=== PATIENT | female | born 1935 | race Caucasian/White ===

== ENCOUNTER 2020-04-13 05:41 | Day surgery (SDC) | payer MEDICARE, SELFPAY ==
[2020-03-23 12:42] VITALS: BMI 21.2
[2020-04-13] VITALS (8 sets, daily range): BP systolic 89–137; BP diastolic 40–78; PULSE 75–103; RESP 14–18; TEMP 36.1–36.6; O2SAT 96–100; BMI 21.2
--- NOTE | 2020-04-13 06:17 | HP.PCM_ITS ---
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 Fermin Conrad MD) Smoking Status: Never smoker alcohol intake: never HPI HPI HPI: BIPIN SAXENA, is a 84 F who presents to the office today for surgical follow-up regarding surveillance colonoscopy because of a personal history of colon cancer. She currently denies any bright red blood per rectum or melena. No abdominal pain. As noted below December 2015 she had a combined laparoscopic right colectomy and cholecystectomy. 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 No lymph node involvement. She had a follow-up colonoscopy 1 year subsequently 2016. Her weight has been stable. No abdominal pain. No acute change of bowel habit. Report of Operation Date of Procedure: 03/09/17 Pre-Operative Diagnosis: Personal history of colon cancer Post-Operative Diagnosis: Patent ileocolonic anastomosis. Diminutive polyp of the descending colon. Scattered sigmoid diverticulosis. Internal hemorrhoids Surgery/Procedure Performed:: Colonoscopy with cold forceps polypectomy, adenomatous tissue January 19, 2016 MICROSCOPIC DIAGNOSIS A. Gallbladder, cholecystectomy:Chronic cholecystitis and cholelithiasis. B. Right colon, hemicolectomy:Invasive adenocarcinoma.See comment for complete cancer checklist.AM:kaushik 01/21/16COMMENTCOLOVlad CANCER SUMMARY:Specimen ?right colonProcedure ?right hemicolectomyTumor site ?right colonTumor size ?2.5 x 2 x 0.6 cm Tumor grade ?grade 2 (moderately differentiated)Macroscopic tumor perforation ?not identifiedHistologic type ?adenocarcinomaMicroscopic tumor extension ?tumor invades muscularis propriaHistologic features suggestive of Microsatellite Instability:Intratumoral lymphocytic response -mildPeritumoral lymphocytic response (Crohn-like) ?not presentTumor subtype and differentiation ?not applicable Margins: Tumor is located 10.5 cm from its closest (distal) margin of excisionProximal margin ?uninvolved by carcinomaDistal margin -uninvolved by carcinomaCircumferential or mesenteric margin -uninvolved by carcinomaLymph- Vascular invasion ?not identifiedPerineural invasion ?not identifiedTumor deposits ?not identifiedType of tumor in association with carcinoma ?tubular adenomaLymph nodes: Number of lymph nodes examined ?29 Number of lymph nodes involved -0 Ancillary studies:See microsatellite instability study by IHC ([id number]) for complete details.Negative (no loss of mismatch protein; no microsatellite instability detected). PATHOLOGIC STAGE: pT2 N0 M HPI HPI HPI: BIPIN SAXENA, is a 84 F who presents to the office today for ROS General General: Yes colon cancer; no weight change, appetite, fatigue, breast cancer or weakness HEENT HEENT: Yes eye injury and eye surgery; no difficulty swallowing, swollen glands or hoarseness Endo Endocrine: No thyroid disease, diabetes mellitus, thyroid cancer, Hair loss, heat intolerance or cold intolerance Skin Skin: No rash or changing moles Breast Breast: No left breast lump, right breast lump, nipple discharge, breast pain, abnormal mammogram, abnormal US or breast enlargement Musc Musculoskeletal: No back problems, arthritis, rheumatoid arthritis, gout or joint pain Cardio Cardiovascular: Yes high blood pressure; no murmur, pacemaker, heart disease, atrial fibrillation, heart attack, heart stent, palpitations, shortness of breat with exertion or chest pain Psych Psychiatric: No depression, anxiety or hearing voices Resp Respiratory: No shortness of breath, No sleep apnea, No cough, No COPD, No asthma, No emphysema, No wheezing Gastro Gastrointestinal: No abdominal pain, No nausea or vomiting, No diarrhea, No constipation, No blood in stool, No acid reflux, No hemorrhoids, No ulcers, No gallbladder problem, No black,tarry stools Jose Hematologic: No blood thinners, No blood disorders, No bleeding, No anemia, No blood clots Neuro Neurologic: No system reviewed and no additional complaints, except as docu, No as per HPI, No abnormal walking, No abnormal hearing, No abnormal movements, No abnormal speech, No behavioral changes, No burning sensations, No confusion, No seizure-like activity, No unsteadiness, No dizziness, No localized weakness, No frequent falls, No headache(s), No lack of coordination, No loss of vision, No memory loss, No numbness, No other visual disturbances, No radiating pain, No restless legs, No sensory deficit, No fainting, No tingling, No tremor(s), No weakness, No other Exam Const General: cooperative, healthy appearing, comfortable, no acute distress Nutritional Appearance: average body habitus Orientation: alert, awake [facility] Head: normal to inspection Eyes General: appearance normal, both eyes and all related structures Chest Breast Palpation: No nipple discharge Resp Effort & Inspection: normal respiratory effort Auscultation: clear to auscultation bilaterally Cardio Rate: regular rate Rhythm: regular rhythm Heart Sounds: no murmurs GI Other: Soft, nontender, well-healed supraumbilical vertical incision without defect, bowel sounds present and normal, Musc Cervical Spine: normal cervical lordosis Neuro Cognition: normal cognition Extrem General: no calf tenderness Psych Affect: normal affect Assessment & Plan Problems 1. Malignant neoplasm of ascending colon C18.2 Plan 84-year-old female with personal history of colon cancer in 2016. Her most recent colonoscopy was February 2017. She did have adenomatous tissue of her descending colon at that time. I am recommending a colonoscopy with possible biopsy or polypectomy as indicated. She did well IV sedation at that time. She is aware of the technique, benefit, risk, alternatives. We will schedule procedure at her discretion. I appreciate the ongoing opportunity of assisting with her surgical care. Copy: Dr. Vahe Conrad M.D., F.A.C.S. Orders Orders: Colonoscopy Today Coding Level of Care Code Off vis,est,level 2 Diagnoses Malignant neoplasm of ascending colon C18.2 ??Colon location: ascending I have re-examined the patient. There are no clinical changes since date of exam.
--- NOTE | 2020-04-13 07:15 | OP.CCLET_ITS ---
04/13/2020 Vahe Plunkett MD Re : Colonoscopy procedure for Isatu Botello Dear Dr. Plunkett This procedure was performed on Monday, April 13, 2020. My impressions and recommendations are as follows: Impressions : - Hemorrhoids found on perianal exam. - Diverticulosis in the sigmoid colon and in the descending colon. - Patent functional end-to-end ileo-colonic anastomosis, characterized by healthy appearing mucosa. - The examination was otherwise normal. - No specimens collected. Recommendations : - Discharge patient to home. - Resume previous diet. - Continue present medications. - Repeat colonoscopy in 3 years for screening purposes. My findings are described in the full procedure note, which is enclosed. If I can be of further assistance, please feel free to contact me at Doctor phone number(s): Work: . Sincerely, Fermin Conrad MD 04/13/2020 7:15:24 AM This report has been signed electronically.
--- NOTE | 2020-04-13 07:15 | OP.COLON_ITS ---
Patient Name: Isatu Botello Procedure Date: 04/13/2020 6:53 AM Date of : 1935 Age: 84 Procedure: Colonoscopy Indications: High risk colon cancer surveillance: Personal history of colon cancer Providers: Fermin Conrad MD Referring MD: Vahe Plunkett MD Medicines: Midazolam 2.5 mg IV, Meperidine 75 mg IV Patient Profile: Last Colonoscopy: 2016. Complications: No immediate complications. Procedure: Pre-Anesthesia Assessment: - Prior to the procedure, a History and Physical was performed, and patient medications and allergies were reviewed. The patient's tolerance of previous anesthesia was also reviewed. The risks and benefits of the procedure and the sedation options and risks were discussed with the patient. All questions were answered, and informed consent was obtained. Prior Anticoagulants: The patient has taken no previous anticoagulant or antiplatelet agents. ASA Grade Assessment: II - A patient with mild systemic disease. After reviewing the risks and benefits, the patient was deemed in satisfactory condition to undergo the procedure. After I obtained informed consent, the scope was passed under direct vision. Throughout the procedure, the patient's blood pressure, pulse, and oxygen saturations were monitored continuously. The colonoscope was introduced through the anus and advanced to the ileocolonic anastomosis. The colonoscopy was performed without difficulty. The patient tolerated the procedure well. The quality of the bowel preparation was good. Ileocolonic anastomosis were photographed. Moderate Sedation: Moderate (conscious) sedation was personally administered by the endoscopist. The following parameters were monitored: oxygen saturation, heart rate, blood pressure, and response to care. Total physician intraservice time was 15 minutes. Scope In: 7:02:13 AM Scope Withdrawal Time 0 hours 6 minutes 20 seconds Scope Out: 7:10:29 AM Total Procedure Duration Time 0 hours 8 minutes 16 seconds Findings: Hemorrhoids were found on perianal exam. Scattered diverticula were found in the sigmoid colon and descending colon. There was evidence of a prior functional end-to-end ileo-colonic anastomosis in the proximal transverse colon. This was patent and was characterized by healthy appearing mucosa. The exam was otherwise without abnormality. Impression: - Hemorrhoids found on perianal exam. - Diverticulosis in the sigmoid colon and in the descending colon. - Patent functional end-to-end ileo-colonic anastomosis, characterized by healthy appearing mucosa. - The examination was otherwise normal. - No specimens collected. Recommendation: - Discharge patient to home. - Resume previous diet. - Continue present medications. - Repeat colonoscopy in 3 years for screening purposes. Procedure Code(s): --- Professional --- 17225, Colonoscopy, flexible; diagnostic, including collection of specimen(s) by brushing or washing, when performed (separate procedure) 99694, 59, Moderate sedation services provided by the same physician or other qualified health rn intensive care unit performing the diagnostic or therapeutic service that the sedation supports, requiring the presence of an independent trained observer to assist in the monitoring of the patient's level of consciousness and physiological status; initial 15 minutes of intraservice time, patient age 5 years or older Diagnosis Code(s): --- Professional --- Z85.038, Personal history of other malignant neoplasm of large intestine K64.9, Unspecified hemorrhoids Z98.0, Intestinal bypass and anastomosis status K57.30, Diverticulosis of large intestine without perforation or abscess without bleeding CPT copyright 2017 [employer]. All rights reserved. The codes documented in this report are preliminary and upon nuclear pharmacist review may be revised to meet current compliance requirements. Fermin Conrad MD 04/13/2020 7:15:24 AM This report has been signed electronically. Number of Addenda: 0 Note Initiated On: 04/13/2020 6:53 AM
== END 2020-04-13 08:28 | disposition home or self-care (01) ==
LOC: EN 05:41 → AC 05:42
PROVIDERS: PCP Family Medicine; Referring Provider Family Medicine; Visit Provider Surgery
PROC: 0DJD8ZZ Inspection of Lower Intestinal Tract, Via Natural or Artificial Opening Endoscopic (ICD-10-PCS; CPT 45378; principal; 2020-04-13 06:55)
DX: Z12.11 Encounter for screening for malignant neoplasm of colon (principal); Z85.038 Personal history of other malignant neoplasm of large intestine; Z20.828 Contact with and (suspected) exposure to other viral communicable diseases; I10 Essential (primary) hypertension; Z90.49 Acquired absence of other specified parts of digestive tract; K64.9 Unspecified hemorrhoids; K57.30 Diverticulosis of large intestine without perforation or abscess without bleeding; Z98.0 Intestinal bypass and anastomosis status
CPT/HCPCS: G0105; 87426; 99152; 99153; C9803; J7120

== ENCOUNTER 2023-05-24 06:44 | Day surgery (SDC) | payer MEDICARE, SELFPAY ==
[2023-05-24] VITALS (10 sets, daily range): BP systolic 121–161; BP diastolic 72–96; PULSE 78–99; RESP 16; TEMP 36.3–36.7; O2SAT 96–100; BMI 20.2
--- NOTE | 2023-05-24 06:47 | HP.PCM_ITS ---
History and Physical Date of Admission: 05/24/23 Visit Reasons: 3 YEAR COLONOSCOPY Chief Complaint: 3 year colonoscopy Is patient in pain?: No Allergies Sulfa (Sulfonamide Antibiotics) Allergy (Verified 04/03/23 14:42) Unknown Medications amlodipine 5 mg tablet (Norvasc) 5 mg PO DAILY 03/23/20 [History Confirmed 04/03/23] cetirizine 10 mg capsule (Zyrtec) mg PO 03/23/20 [History Confirmed 04/03/23] cholecalciferol (vitamin D3) 25 mcg (1,000 unit) capsule 25 mcg PO DAILY 03/23/20 [History Confirmed 04/03/23] clonidine HCl 0.1 mg tablet 0.1 mg PO QHS 03/23/20 [History Confirmed 04/03/23] PFSH Medical History Aspiration pneumonia HTN (hypertension) Sepsis Surgical History S/P colectomy Family History Sister Colon cancer Hypertension Diabetes Social History Smoking Status: Never smoker alcohol intake: never HPI HPI HPI: 87-year-old female who I assisted previously April 13, 2020 with a colonoscopy because she has had a personal history of colon cancer. Hemorrhoids were identified and diverticula of the sigmoid and descending colon. There was evidence of a prior functional end-to-end ileocolonic anastomosis in the proximal transverse colon that appeared healthy. No acute findings identified. December 2015 she had a combined laparoscopic right colectomy and cholecystectomy for stage II ascending colon cancer. She continues to enjoy a very high quality of life. No abdominal pain. No bright red blood per rectum or melena. Her is still alive as well. She remains active both inside and outside of the house. ROS General General: Yes colon cancer; No weight change, appetite, fatigue, breast cancer or weakness HEENT HEENT: Yes eye surgery; No difficulty swallowing, eye injury, swollen glands or hoarseness Endo Endocrine: No thyroid disease, diabetes mellitus, thyroid cancer, Hair loss, heat intolerance or cold intolerance Skin Skin: No rash or changing moles Musc Musculoskeletal: No back problems, arthritis, rheumatoid arthritis, gout or joint pain Cardio Cardiovascular: Yes high blood pressure; No murmur, pacemaker, heart disease, atrial fibrillation, heart attack, heart stent, palpitations, shortness of breat with exertion or chest pain Psych Psychiatric: Yes anxiety; No depression or hearing voices Resp Respiratory: No shortness of breath, No sleep apnea, No cough, No COPD, No asthma, No emphysema and No wheezing Gastro Gastrointestinal: No abdominal pain, No nausea or vomiting, No diarrhea, No constipation, No blood in stool, No acid reflux, No hemorrhoids, No ulcers, No gallbladder problem and No black,tarry stools Jose Hematologic: No blood thinners, No blood disorders, No bleeding, No anemia and No blood clots Neuro Neurologic: No system reviewed and no additional complaints, except as docume nted, No as per HPI, No abnormal gait, No abnormal hearing, No abnormal movements, No abnormal speech, No behavioral changes, No burning sensations, No confusion, No convulsions, No disequilibrium, No dizziness, No localized weakness, No frequent falls, No headache(s), No lack of coordination, No loss of vision, No memory loss, No numbness, No other visual disturbances, No radicular pain, No restless legs, No sensory deficit, No syncope, No tingling, No tremor(s), No weakness and No other Exam Const General: cooperative, comfortable and no acute distress Nutritional Appearance: average body habitus Orientation: alert and awake [facility] Head: normal to inspection Eyes General: appearance normal, both eyes and all related structures Neck Neck: normal visual inspection Resp Effort & Inspection: normal respiratory effort Auscultation: clear to auscultation bilaterally Cardio Rate: regular rate Rhythm: regular rhythm GI Inspection: normal to inspection Palpation: soft and no hepatosplenomegaly Other: Well-healed vertical supraumbilical ventral incision Musc Cervical Spine: normal cervical lordosis Skin General: no rashes or lesions noted Neuro General: patient alert, patient awake and patient oriented x3 Extrem General: no calf tenderness Psych Appearance: grossly normal Assessment and Plan Assessment and Plan (1) History of colon cancer: Status: Acute Plan: Copy: Dr. Vaeh Conrad M.D., F.A.C.S The patient has had no change in health or presentation or physical exam since her previous office visit. We will plan to proceed with a colonoscopy with possible biopsy or polypectomy as indicated. She is aware of the technique, benefit, risk, alternatives. She has had an opportunity to ask and have questions answered. We will proceed as noted. Fermin Conrad M.D., F.A.C.S.
--- OUTSIDE RECORDS SUMMARY | 2023-05-24 06:47 | XMS RPT_ITS | CCD ---
Author Name Unknown Address [address] [place] [address] Organization [facility] Care Team Providers Care Child'S Nurse Name Role Phone Simran Cottrell Unavailable Unavailable Bassem Marques MD Primary Care Provider Bassem Marques MD Primary Care Provider Bassem Marques MD Primary Care Provider [phone] BASSEM MARQUES Primary Care Unavailable BASSEM MARQUES Referring Unavailable BASSEM MARQUES Attending Unavailable BASSEM MARQUES Primary Care Unavailable WERO CURRY Referring Unavailable BASSEM MARQUES Primary Care Unavailable WERO CURRY Referring Unavailable WERO CURRY Attending Unavailable BASSEM MARQUES Primary Care Unavailable WERO CURYR Attending Unavailable Allergies Allergy Classification Reported Allergen(s) Allergy Type Date of Onset Reaction(s) Facility (9 sources) Dextromethorphan / guaiFENesin; Translations: [DEXTROMETHORPHAN-GUA IFENESIN] Drug Allergy 6 Unknown [facility] Work Phone: (9 sources) Sulfonamides (Antibiotic); Translations: [SULFA (SULFONAMIDE ANTIBIOTICS)] Drug Allergy 6 Unknown [facility] Work Phone: Medications Completed/Discontinued Medications Medication Drug Class(es) Dates Sig (Normalized) Sig (Original) amLODIPine 5 mg oral tablet (11 sources) Dihydropyridine Calcium Channel [place] Start: 01-26-2021 End: 11-30-2022 take 1 tablet by mouth once daily amLODIPine (NORVASC) 5 mg tablet Take 1 tablet by mouth once daily. 90 tablet 3 11/30/2022 Active Problems Active Problems Problem Classification Problem Date Documented Date Episodic/Chronic Adjustment disorders (9 sources) Stress; Translations: [Reaction to severe stress, unspecified] Onset: 04-11-2017 04-11-2017 Chronic Anxiety disorders (12 sources) Anxiety; Translations: [Anxiety disorder, unspecified] Onset: 11-26-2009 09-30-2014 Chronic Cancer of colon (11 sources) Malignant tumor of colon; Translations: [Malignant tumor of transverse colon] Onset: 01-21-2016 02-14-2017 Chronic Chronic kidney disease (11 sources) Chronic kidney disease stage 3; Translations: [CKD (chronic kidney disease) stage 3, GFR 30-59 ml/min] Onset: 06-16-2014 09-30-2014 Chronic Chronic kidney disease (1 source) Chronic kidney disease; Translations: [Stage 3a chronic kidney disease (HCC)] Onset: 09-30-2014 Disorders of lipid metabolism (12 sources) Mixed hyperlipidemia; Translations: [Mixed hyperlipidemia] Onset: 04-02-2015 04-02-2015 Chronic Diverticulosis and diverticulitis (8 sources) Diverticulosis of large intestine; Translations: [Diverticulosis of large intestine without perforation or abscess without bleeding] 04-02-2015 Chronic Essential hypertension (12 sources) Essential hypertension; Translations: [Essential (primary) hypertension] Onset: 10-06-2015 10-06-2015 Chronic Hemorrhoids (8 sources) Hemorrhoids; Translations: [Unspecified hemorrhoids] 04-02-2015 Episodic Osteoporosis (20 sources) Senile osteoporosis; Translations: [Age-related osteoporosis without current pathological fracture] Onset: 10-28-2012 12-03-2020 Chronic Other upper respiratory disease (8 sources) Allergic rhinitis; Translations: [Allergic rhinitis, unspecified] Onset: 10-06-2015 10-06-2015 Chronic Residual codes; unclassified (2 sources) Active living will ; Translations: [Other specified health status] Onset: 03-01-2023 03-01-2023 Episodic Past or Other Problems Problem Classification Problem Date Documented Da te Episodic/Chronic Administrative/social admission (9 sources) Advance directive discussed with patient; Translations: [Other specified counseling] Onset: 01-26-2022 Episodic Other and unspecified benign neoplasm (8 sources) Benign neoplasm of colon; Translations: [Benign neoplasm of colon, unspecified] Onset: 12-04-2005 09-30-2014 Episodic Other and unspecified benign neoplasm (8 sources) History of polyp of colon; Translations: [Personal history of colonic polyps] Onset: 12-09-2008 04-02-2015 Episodic Other skin disorders (8 sources) Actinic keratosis; Translations: [Actinic keratosis] Onset: 10-06-2015 04-21-2019 Episodic Residual codes; unclassified (8 sources) Family history of cancer of colon; Translations: [Family history of malignant neoplasm of digestive organs] Onset: 12-16-2015 01-21-2016 Episodic Residual codes; unclassified (11 sources) Memory impairment; Translations: [Other amnesia] Onset: 10-12-2017 10-12-2017 Episodic Residual codes; unclassified (1 source) Active advance directive; Translations: [Other specified health status] Onset: 04-29-2020 04-29-2020 Episodic Results Test Name Value Interpretation Reference Range Facil ity Vital Signs Date Time Vital Sign Value Performing Clinician Facility 03-01-2023 13:43-0400 Body height 160 cm Bassem Marques MD Work Phone: [facility] 03-01-2023 13:43-0400 Body weight 53.98 kg Bassem Marques MD Work Phone: [facility] 03-01-2023 13:43-0400 Diastolic blood pressure 74 mm[Hg] Bassem Marques MD Work Phone: [facility] 03-01-2023 13:43-0400 Heart rate 64 /min Bassem Marques MD Work Phone: [facility] 03-01-2023 13:43-0400 Respiratory rate 16 /min Bassem Marques MD Work Phone: [facility] 03-01-2023 13:43-0400 Systolic blood pressure 114 mm[Hg] Bassem Marques MD Work Phone: [facility] 08-18-2022 12:31-0400 Body temperature 97.11 [degF] Wero Curry PA-C Work Phone: [facility] 08-18-2022 12:31-0400 Body weight 53.98 kg Wero Curry PA-C Work Phone: [facility] 08-18-2022 12:31-0400 Diastolic blood pressure 72 mm[Hg] Wero Curry PA-C Work Phone: [facility] 08-18-2022 12:31-0400 Heart rate 72 /min Wero Curry PA-C Work Phone: [facility] 08-18-2022 12:31-0400 Respiratory rate 16 /min Wero Curry PA-C Work Phone: [facility] 08-18-2022 12:31-0400 Systolic blood pressure 128 mm[Hg] Wero Curry PA-C Work Phone: [facility] 05-23-2022 07:21-0500 Body temperature 98.1 [degF] Wero Curry PA-C Work Phone: [facility] 05-23-2022 07:21-0500 Body weight 53.89 kg Wero Curry PA-C Work Phone: [facility] 05-23-2022 07:21-0500 Diastolic blood pressure 78 mm[Hg] Wero Curry PA-C Work Phone: [facility] 05-23-2022 07:21-0500 Heart rate 99 /min Wero Curry PA-C Work Phone: [facility] 05-23-2022 07:21-0500 Respiratory rate 16 /min Wero Curry PA-C Work Phone: [facility] 05-23-2022 07:21-0500 SaO2% (BldA) [Mass fraction] 98 % Wero Curry PA-C Work Phone: [facility] 05-23-2022 07:21-0500 Systolic blood pressure 130 mm[Hg] Wero Curry PA-C Work Phone: [facility] 01-26-2022 13:49-0400 Body temperature 99.1 [degF] Wero Curry PA-C Work Phone: [facility] 01-26-2022 13:49-0400 Body weight 53.07 kg Wero CRAIG-C Work Phone: [facility] 01-26-2022 13:49-0400 Diastolic blood pressure 70 mm[Hg] Wero CRAIG-C Work Phone: [facility] 01-26-2022 13:49-0400 Heart rate 76 /min Wero Curry PA-C Work Phone: [facility] 01-26-2022 13:49-0400 Respiratory rate 16 /min Wero CRAIG-C Work Phone: [facility] 01-26-2022 13:49-0400 Systolic blood pressure 110 mm[Hg] Wero CRAIG-C Work Phone: [facility] 02-14-2017 09:02-0400 BMI (Body Mass Index) 20.72 kg/m2 [facility] Work Phone: 02-14-2017 09:02-0400 Body Temperature 97.8 [degF] [facility] Work Phone: 02-14-2017 09:02-0400 BP Diastolic 68 mm[Hg] [facility] Work Phone: 02-14-2017 09:02-0400 BP Systolic 103 mm[Hg] [facility] Work Phone: 02-14-2017 09:02-[address] [facility] Work Phone: 02-14-2017 09:02-0400 Pulse (Heart Rate) 81 /min [facility] Work Phone: 02-14-2017 09:02-0400 Respiratory Rate 20 /min [facility] Work Phone: 02-14-2017 09:02-[address] [facility] Work Phone: Encounters Encounter Date Encounter Type Care Provider Facility Start: 04-04-2023 Chart abstracting Bas[facility] Start: 03-01-2023 End: 03-02-2023 ambulatory BASSEM MARQUES Facility:[facility] Start: 03-01-2023 End: 03-01-2023 ambulatory BASSEM MARQUES Facility:[facility] Start: 03-01-2023 End: 03-01-2023 Patient encounter procedure Bassem Marques MD Work Phone: [facility] Procedures Date Procedure Procedure Detail Performing Clinician Start: 02-14-2017 End: 02-14-2017 Colonoscopy flx dx w/collj spec when pfrmd Fermin Conrad MD Work Phone: Plan of Treatment Date Care Activity Detail Author Start: 03-01-2026 [facility]: 01-26-2025 DIABETES SCREEN DIABETES SCREEN [facility] Start: 01-26-2025 Diabetes Screening Diabetes Screenin [facility] Start: 06-02-2024 DIABETES SCREEN DIABETES SCREEN [facility] Start: 08-19-2023 COVID-19 VACCINE (4 - Booster for Moderna series) COVID-19 VACCINE (4 - Booster for Moderna series) [facility] Immunizations Immunization Date Immunization Notes Care Provider [facility] 08-19-2020 COVID-19 vaccine, fu ll dose (MODERNA) Bassem Marques MD Work Phone: [facility] 07-22-2020 COVID-19 vaccine, fu ll dose (MODERNA) Bassem Marques MD Work Phone: [facility] 04-11-2017 influenza, injectabl e, quadrivalent, contains preservative Bassem Marques MD Work Phone: [facility] 10-06-2015 pneumococcal polysaccharide vaccine, 23 valent Bassem Marques MD Work Phone: [facility] 09-30-2014 pneumococcal conjuga te vaccine, 13 valent Bassem Marques MD Work Phone: [facility] 06-11-2009 pneumococcal polysaccharide vaccine, 23 valent Bassem Marques MD Work Phone: [facility] Payers Date Payer Category Payer Medicare HU[employer]NA MEDICARE HU[employer] GOLD PLUS [id number] 2021-Present [phone] [address] [address] [place] [address] O [id number] 2018 Medicare [id number] 2018 Private Health Insurance [id number] Social History Date Type Detail Facility Tobacco smoking stat NHIS Never smoked tobacco [facility] Start: 07-08-2021 End: 03-01-2023 Alcohol intake Current non-drinker of alcohol (finding) [facility] Start: 1935 Sex Assigned At Not on file [facility] Start: 01-16-2022 End: 01-26-2022 Exposure to SARS-CoV-2 (event) Not sure [facility] Start: 08-18-2022 End: 03-01-2023 History of Social function [facility] Work Phone: Start: 08-18-2022 End: 03-01-2023 Tobacco use panel [facility] Work Phone: Adult Depression Screening Assessment 0 [facility] Work Phone: Clinical Notes 09-30-2014 to 04-04-2023 Soheila Plasencia LPN - 04/04/2023 8:27 AM ESTPatient Bassem Jackson MD - 03/01/2023 1:40 PM EDTTelephone Encounter - Soheila Plasencia LPN - 11/30/2022 8:46 AM EDT Note Date & Type Note Facility 04-04-2023 Note HNO ID: [id number] Author: Soheila Plasencia LPN Service: ? Author Type: ? Type: Progress Notes Filed: 04/04/2023 12:26 PM Note Text: Scan on 04/03/2023 3:20 PM by Provider, External, PA-C: Consultation - General Surgery [facility] 04-04-2023 History of Presen t illness Narrative Scan on 04/03/2023 3:20 PM by Provider, External, GINA: Consultation - General Surgery documented in this encounter [facility] 03-01-2023 Note HNO ID: [id number] Author: Bassem Marques MD Service: ? Author Type: Physician Type: Progress Notes Filed: 03/01/2023 2:20 PM Note Text: Medicare Yearly Visit Medical B eligibilty date not able to find Date of last exam 01/26/2022 PAST MEDICAL HISTORY PAST MEDICAL HISTORY Diagnosis Date Age-related osteoporosis without current pathological fracture Fosamax stopped at end of 2016 AK (actinic keratosis) 10/06/2015 left temperal area, Left hand treated 10/09/2016 Allergic rhinitis 12/01/2011 Anxiety 11/26/2009 Benign neoplasm of colon CKD (chronic kidney disease) stage 3, GFR 30-59 ml/min (HCC) 06/16/2014 Diverticulosis of large intestine Essential hypertension with goal blood pressure less than 140/90 10/06/2015 FHx: colon cancer 12/16/2015 Hemorrhoids History of colonic polyps 12/09/2008 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 S/p right hemicolectomy. Due for colonoscopy 2019 Memory impairment 10/12/2017 MMSE 09/2017 score 26 Mixed hyperlipidemia Osteoporosis 10/28/2012 Fosamax started 2011 Situational stress 04/11/2017 PAST SURGICAL HISTORY PAST SURGICAL HISTORY Procedure Laterality Date BIOPSY BREAST OPEN INCISIONAL Bx of breast, incisional CHOLECYSTECTOMY HX 01/19/2016 COLONOSCOPY 03/09/2017 Dr. Conrad, repeat 3 yrs COLONOSCOPY 04/13/2020 Dr. Conrad, repeat 3 years COLONOSCOPY FLX DX W/COLLJ SPEC WHEN PFRMD 12/04/2005 Colonoscopy COLONOSCOPY FLX DX W/COLLJ SPEC WHEN PFRMD 12/25/13 Colonoscopy, recheck 5 yrs COLONOSCOPY FLX DX W/COLLJ SPEC WHEN PFRMD 12/16/2015 Colonoscopy, repeat in a year COLSC FLX W/RMVL OF TUMOR POLYP LESION SNARE TQ 12/09/08 LAPAROSCOPY SURG CHOLECYSTECTOMY 01-19-16 LAPS COLECTOMY PRTL W/RMVL TERMINAL ILEUM 01-19-16 colon cancer LIG/TRNSXJ FLP TUBE ABDL/VAG APPR UNI/BI Tubal ligation PAST SURGICAL HISTORY OF 01/19/2016 right hemicolectomy for proximal to mid tranverse colon CA ALLERGIES: Sulfa (Sulfonamide Antibiotics) and Naldecon Senior Dx [Dextromethorphan-Guaifenesin] Medications reviewed: Yes FAMILY HISTORY FAMILY HISTORY Problem Relation Age of Onset Hypertension Mother at age 76 from [place] Coronary Artery Disease Mother Diabetes Mother None Father at age 97 Colon Cancer Sister Diabetes Sister Cancer Brother thyroid SOCIAL HISTORY: SOCIAL HISTORY Social History Tobacco Use Smoking status: Never Smokeless tobacco: Never Vaping Use Vaping Use: Never used Substance Use Topics Alcohol use: No Drug use: No Isatu likes to exercise by bowling, staying active in her yard. She watches her diet for sodium, low fat and low cholesterol some of the time. List of current specialists seen: none End of Live Planning discussed including patients advanced directive wishes: Yes I am willing to follow Isatu's advanced directives. Not at risk for depression. Functional Ability/Safety Screen 1. Was the patient's timed Up and Go test unsteady or longer than 30 seconds? No 2. Does the patient need help with the phone, transportation, shopping,preparing meals, housework, laundry, medications or managing money? No 3. Does your home have rugs in the hallway, lack of grab bars in the bathroom, lack of handrails on the stairs or have poor lighting? No Hearing Evaluation: hard of hearing PHYSICAL EXAM BP 114/74 (BP Site: Right Arm, BP Position: Sitting, BP Cuff Size: Regular Adult) Pulse 64 Resp 16 Ht 160 cm (5' 3 ) Wt 54 kg (119 lb) BMI 21.08 kg/m? Alert and oriented X 3: YES Body mass index is 21.08 kg/m?. Visual acuity: see opto ASSESSMENT/PLAN: 87 year old female The following prevention plan was discussed during the office visit and provided to the patient: See below Chief Complaint Patient presents with: Medicare Wellness Exam HPI Isatu Botello is a 87 year old female who presents here today for Chronic Medical Conditions. and Medicare Annual Visit. Patient with hx of HTN, hyperlipidemia, CKD, osteoporosis, anxiety, and those as below. BP's morning 118-121/70's Last colonoscopy completed 04/2020 Patient has been doing well. No new issues. Past medical history, appointments, medications, allergies reviewed. Previous Medical History PAST MEDICAL HISTORY Diagnosis Date Age-related osteoporosis without current pathological fracture Fosamax stopped at end of 2016 AK (actinic keratosis) 10/06/2015 left temperal area, Left hand treated 10/09/2016 Allergic rhinitis 12/01/2011 Anxiety 11/26/2009 Benign neoplasm of colon CKD (chronic kidney disease) stage 3, GFR 30-59 ml/min (HCC) 06/16/2014 Diverticulosis of large intestine Essential hypertension with goal blood pressure less than 140/90 10/06/2015 FHx: colon cancer 12/16/2015 Hemorrhoids History of colonic polyps 12/09/2008 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 S/p right hemicolectomy. Due fo (more content not included)... [facility] 03-01-2023 Instructions Bassem Marques MD - 03/01/2023 2:13 PM EDT Please get labs done on or after 08/17/2023 prior to your next visit. documented in this encounter [facility] 03-01-2023 History of Presen t illness Narrative Medicare Yearly Visit Medical B eligibilty date not able to find Date of last exam 01/26/2022 PAST MEDICAL HISTORY PAST MEDICAL HISTORY Diagnosis Date Age-related osteoporosis without current pathological fracture Fosamax stopped at end of 2016 AK (actinic keratosis) 10/06/2015 left temperal area, Left hand treated 10/09/2016 Allergic rhinitis 12/01/2011 Anxiety 11/26/2009 Benign neoplasm of colon CKD (chronic kidney disease) stage 3, GFR 30-59 ml/min (HCC) 06/16/2014 Diverticulosis of large intestine Essential hypertension with goal blood pressure less than 140/90 10/06/2015 FHx: colon cancer 12/16/2015 Hemorrhoids History of colonic polyps 12/09/2008 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 S/p right hemicolectomy. Due for colonoscopy 2019 Memory impairment 10/12/2017 MMSE 09/2017 score 26 Mixed hyperlipidemia Osteoporosis 10/28/2012 Fosamax started 2011 Situational stress 04/11/2017 PAST SURGICAL HISTORY PAST SURGICAL HISTORY Procedure Laterality Date BIOPSY BREAST OPEN INCISIONAL Bx of breast, incisional CHOLECYSTECTOMY HX 01/19/2016 COLONOSCOPY 03/09/2017 Dr. Conrad, repeat 3 yrs COLONOSCOPY 04/13/2020 Dr. Conrad, repeat 3 years COLONOSCOPY FLX DX W/COLLJ SPEC WHEN PFRMD 12/04/2005 Colonoscopy COLONOSCOPY FLX DX W/COLLJ SPEC WHEN PFRMD 12/25/13 Colonoscopy, recheck 5 yrs COLONOSCOPY FLX DX W/COLLJ SPEC WHEN PFRMD 12/16/2015 Colonoscopy, repeat in a year COLSC FLX W/RMVL OF TUMOR POLYP LESION SNARE TQ 12/09/08 LAPAROSCOPY SURG CHOLECYSTECTOMY 01-19-16 LAPS COLECTOMY PRTL W/RMVL TERMINAL ILEUM 01-19-16 colon cancer LIG/TRNSXJ FLP TUBE ABDL/VAG APPR UNI/BI Tubal ligation PAST SURGICAL HISTORY OF 01/19/2016 right hemicolectomy for proximal to mid tranverse colon CA ALLERGIES: Sulfa (Sulfonamide Antibiotics) and Naldecon Senior Dx [Dextromethorphan-Guaifenesin] Medications reviewed: Yes FAMILY HISTORY FAMILY HISTORY Problem Relation Age of Onset Hypertension Mother at age 76 from [place] Coronary Artery Disease Mother Diabetes Mother None Father at age 97 Colon Cancer Sister Diabetes Sister Cancer Brother thyroid SOCIAL HISTORY: SOCIAL HISTORY Social History Tobacco Use Smoking status: Never Smokeless tobacco: Never Vaping Use Vaping Use: Never used Substance Use Topics Alcohol use: No Drug use: No Isatu likes to exercise by bowling, staying active in her yard. She watches her diet for sodium, low fat and low cholesterol some of the time. List of current specialists seen: none End of Live Planning discussed including patients advanced directive wishes: Yes I am willing to follow Isatu's advanced directives. Not at risk for depression. Functional Ability/Safety Screen 1. Was the patient's timed Up and Go test unsteady or longer than 30 seconds? No 2. Does the patient need help with the phone, transportation, shopping,preparing meals, housework, laundry, medications or managing money? No 3. Does your home have rugs in the hallway, lack of grab bars in the bathroom, lack of handrails on the stairs or have poor lighting? No Hearing Evaluation: hard of hearing PHYSICAL EXAM BP 114/74 (BP Site: Right Arm, BP Position: Sitting, BP Cuff Size: Regular Adult) Pulse 64 Resp 16 Ht 160 cm (5' 3 ) Wt 54 kg (119 lb) BMI 21.08 kg/m Alert and oriented X 3: YES Body mass index is 21.08 kg/m . Visual acuity: see opto ASSESSMENT/PLAN: 87 year old female The following prevention plan was discussed during the office visit and provided to the patient: See below Chief Complaint Patient presents with: Medicare Wellness Exam HPI Isatu Botello is a 87 year old female who presents here today for Chronic Medical Conditions. and Medicare Annual Visit. Patient with hx of HTN, hyperlipidemia, CKD, osteoporosis, anxiety, and those as below. BP's morning 118-121/70's Last colonoscopy completed 04/2020 Patient has been doing well. No new issues. Past medical history, appointments, medications, allergies reviewed. Previous Medical History PAST MEDICAL HISTORY Diagnosis Date Age-related osteoporosis without current pathological fracture Fosamax stopped at end of 2016 AK (actinic keratosis) 10/06/2015 left temperal area, Left hand treated 10/09/2016 Allergic rhinitis 12/01/2011 Anxiety 11/26/2009 Benign neoplasm of colon CKD (chronic kidney disease) stage 3, GFR 30-59 ml/min ([facility]) 06/16/2014 Diverticulosis of large intestine Essential hypertension with goal blood pressure less than 140/90 10/06/2015 FHx: colon cancer 12/16/2015 Hemorrhoids History of colonic polyps 12/09/2008 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 S/p right hemicolectomy. Due for colonoscopy 2019 Memory impairment 10/12/2017 MMSE 09/2017 score 26 Mixed hyperlipidemia Osteoporosis 10/28/2012 Fosamax started 2011 Situational stress 04/11/2017 Previous Surgical History PAST SURGICAL HISTORY Procedure Laterality Date BIOPSY BREAST OPEN INCISIONAL Bx of breast, incisional CHOLECYSTECTOMY HX 01/19/2016 COLONOSCOPY 03/09/2017 Dr. Conrad, repeat 3 yrs COLONOSCOPY 04/13/2020 Dr. Conrad, repeat 3 years COLONOSCOPY FLX DX W/COLLJ SPEC WHEN PFRMD 12/04/2005 Colonoscopy COLONOSCOPY FLX DX W/COLLJ SPEC WHEN PFRMD 12/25/13 Colonoscopy, recheck 5 yrs COLONOSCOPY FLX DX W/COLLJ SPEC WHEN PFRMD 12/16/2015 Colonoscopy, repeat in a year COLSC FLX W/RMVL OF TUMOR POLYP LESION SNARE TQ 12/09/08 LAPAROSCOPY SURG CHOLECYSTECTOMY 01-19-16 LAPS COLECTOMY PRTL W/RMVL TERMINAL ILEUM 01-19-16 colon cancer LIG/TRNSXJ FLP TUBE ABDL/VAG APPR UNI/BI Tubal ligation PAST SURGICAL HISTORY OF 01/19/2016 right hemicolectomy for proximal to mid tranverse colon CA Family History FAMILY HISTORY Problem Relation Age of Onset Hypertension Mother at age 76 from [place] Coronary Artery Disease Mother Diabetes Mother None Father at age 97 Colon Cancer Sister Diabetes Sister Cancer Brother thyroid Patient Allergies ALLERGIES Allergen Reactions Sulfa (Sulfonamide * Unknown Naldecon Senior Dx * Unknown Current Medications Current Outpatient Medications on File Prior to Visit Medication Sig amLODIPine (NORVASC) 5 mg tablet Take 1 tablet by mouth once daily. ASCORBATE CALCIUM, VITAMIN C, ORAL Take by mouth. cloNIDine HCl (CATAPRES) 0.1 mg tablet Take 1 tablet by mouth three times daily. hydrOXYzine HCl (ATARAX) 10 mg tablet Take 1 tablet by mouth three times daily as needed. MULTI-VITAMIN ORAL Take by mouth. ASCORBIC ACID, VITAMIN C, ORAL Take by mouth. No current facility-administered medications on file prior to visit. Social History Social History Tobacco Use Smoking status: Never Smokeless tobacco: Never Vaping Use Vaping Use: Never used Substance Use Topics Alcohol use: No Drug use: No Review of Symptoms REVIEW OF SYSTEMS GENERAL: No weight loss, malaise or fevers HEENT: Negative for frequent or significant headaches, No changes in hearing or vision, no nose bleeds or other nasal problems NECK: Negative for lumps, goiter, pain and significant neck swelling RESPIRATORY: Negative for cough, hemoptysis, wheezing, COPD, dyspnea or shortness of breath CARDIOVASCULAR: Negative for chest pain, leg swelling, hypertension, CHF or palpitations GI: No nausea, vomiting, or diarrhea, No heartburn or reflux symptoms, and no blood : No history of dysuria, frequency or blood MUSCULOSKELETAL: Negative for joint pain or swelling, back pain or muscle pain SKIN: Negative for lesions, rash, and itching PSYCH: Negative for sleep disturbance, mood disorder and recent psychosocial stressors HEMATOLOGY/LYMPHOLOGY: Negative for prolonged bleeding, bruising easily or swollen nodes ENDOCRINE: Negative for cold or heat intolerance, polyuria, polydipsia and goiter NEURO: No history of headaches, syncope, paralysis, seizures or tremors EXAM: BP 114/74 (BP Site: Right Arm, BP Position: Sitting, BP Cuff Size: Regular Adult) Pulse 64 Resp 16 Ht 160 cm (5' 3 ) Wt 54 kg (119 lb) BMI 21.08 kg/m Last 5 Encounter Wt Readings: Date: Wt: 03/01/2023 54 kg (119 lb) 08/18/2022 54 kg (119 lb) 05/23/2022 53.9 kg (118 lb 12.8 oz) 01/26/2022 53.1 kg (117 lb) 07/08/2021 53.1 kg (117 lb) General Appearance: Well appearing, alert, in no acute distress, well-hydrated, well nourished.. Skin: Skin color, texture, turgor normal, no suspicious rashes or lesions. Head: Normocephalic, no masses, lesions, tenderness or abnormalities. Eyes: Anicteric sclera. Pupils are equally round and reactive to light. Extraocular movements are intact. . Ears: External ears, TM's normal, canals clear. Nose/Sinuses: Nares normal, septum midline, mucosa normal, no drainage or sinus tenderness. Oropharynx: Lips, mucosa, and tongue normal, teeth and gums normal, oropharynx normal. Neck: Supple, no adenopathy; thyroid symmetric, normal size, no bruits. Lungs: Lungs clear to auscultation. No wheezing, rhonchi, rales.. Heart: RRR without murmur, gallop, or rubs. No ectopy. Abdomen: Normal abdominal exam, Abdomen soft, non-tender. Bowel sounds normal. No masses, organomegaly. Extremities: No deformities, edema, skin discoloration, clubbing or cyanosis. Good capillary refill. . Musculoskeletal: Muscular strength intact, No joint swelling, deformity, or tenderness. Peripheral Pulses: Normal. Neurologic: Gait normal. Reflexes normal and symmetric. Sensation to light touch and crainal nerves 2-12 intact.. Health Maintenance List Advance Directive Discussion due on 05/28/2022 DTaP,Tdap,Td Vaccine(1 - Tdap) due on 08/19/2023 Shingrix Vaccine(1 of 2) due on 08/19/2023 Covid-19 Vaccine(4 - Moderna series) due on 08/19/2023 Diabetes Screening due on 01/26/2025 Bone Density Screening Completed Depression Assessment Completed Pneumococcal Vaccine: 65+ Completed HPV Vaccine Aged Out Influenza Vaccine Discontinued Data reviewed Component Latest Ref Rng & Units 06/02/2021 01/26/2022 WBC 3.70 - 11.00 k/uL 5.39 RBC 3.90 - 5.20 m/uL 4.95 Hemoglobin 11.5 - 15.5 g/dL 15.1 Hematocrit 36.0 - 46.0 % 45.4 MCV 80.0 - 100.0 fL 91.7 MCH 26.0 - 34.0 pG 30.5 MCHC 30.5 - 36.0 g/dL 33.3 RDW-CV 11.5 - 15.0 % 12.6 Platelet Count 150 - 400 k/uL 213 MPV 9.0 - 12.7 fL 11.5 Neut% % 54.4 Abs Neut (ANC) 1.45 - 7.50 k/uL 2.91 Lymph% % 32.8 Abs Lymph 1.00 - 4.00 k/uL 1.77 Howard% % 8.0 Abs Howard <0.87 k/uL 0.43 Eosin% % 3.9 Abs Eosin <0.46 k/uL 0.21 Baso% % 0.9 Abs Baso <0.11 k/uL 0.05 Nucleated Reds 0 /100 WBC 0.0 Absolute nRBC <0.01 k/uL <0.01 Diff Type Auto Diff Color Yellow Light Yellow (A) Clarity Clear Clear Glucose, Urine Negative mg/dL Negative Bilirubin, Urine Negative Negative Ketones, Urine Negative Negative Specific [place], Ur 1.005 - 1.030 1.011 Hemoglobin/Blood,Ur Negative 1+ (A) pH, Urine 5.0 - 8.0 5.0 Protein, Urine Negative Negative Urobilinogen Negative E.U./dL Negative Nitrites Negative Negative Leukest Negative 3+ (A) Comment SEE COMMENT Urine Robbie Comment SEE COMMENT WBC, Urine 0 - 5 /HPF 6-10 (A) RBC, Urine 0 - 3 /HPF 0-3 Epithelial Cells /HPF SEE COMMENT Protein, Total 6.3 - 8.0 g/dL 7.3 Albumin 3.9 - 4.9 g/dL 4.6 Calcium 8.5 - 10.2 mg/dL 9.7 10.1 Bilirubin, Total 0.2 - 1.3 mg/dL 0.4 Alkaline Phosphatase 34 - 123 U/L 103 AST 13 - 35 U/L 21 Glucose 74 - 99 mg/dL 83 89 BUN 7 - 21 mg/dL 15 15 Creatinine 0.58 - 0.96 mg/dL 1.02 (H) 1.06 (H) Sodium 136 - 144 mmol/L 142 139 Potassium 3.7 - 5.1 mmol/L 3.8 4.0 Chloride 97 - 105 mmol/L 105 105 CO2 22 - 30 mmol/L 27 26 Anion Gap 9 - 18 mmol/L 10 8 (L) ALT 7 - 38 U/L 14 eGFR- >60 eGFR-All Other Races . 52 eGFR >=60 mL/min/1.73m 52 (L) Total Cholesterol, Nonfasting <200 mg/dL 190 173 Triglycerides, Nonfasting <150 mg/dL 88 188 (H) HDL Cholesterol, Nonfasting >39 mg/dL 60 60 LDL Cholesterol, Nonfasting <100 mg/dL 112 (H) 75 Non HDL Cholesterol, Nonfasting <130 mg/dL 130 (H) 113 VLDL Cholesterol, Nonfasting <30 mg/dL 18 38 (H) Total Chol/HDL Ratio, Nonfasting <5.10 mg/dL 3.17 2.88 LDL/HDL Ratio, Nonfasting <2.54 mg/dL 1.87 1.25 A/P ASSESSMENT/PLAN: 1. Medicare annual wellness visit, subsequent - ICD9: V70.0, ICD10: Z00.00 (primary diagnosis) - Counseled on healthy diet and regular exercise - Calcium intake with supplements or by diet of 1000 mg/day for under 50, 0720-9213 mg/day for 50+ - Follow up for annual exam in one year 2. Essential hypertension with goal blood pressure less than 140/90 - ICD9: 401.9, ICD10: I10 - Controlled - Continue current medications - Recommend home blood pressure monitoring, to bring results to next visit - Encouraged sodium restriction, DASH or Mediterranean diet - Recommend regular aerobic exercise Check - COMP METABOLIC PANEL - URINALYSIS, WITH MICROSCOPIC - LIPID PANEL, NONFASTING 3. Mixed hyperlipidemia - ICD9: 272.2, ICD10: E78.2 - await labs check - COMP METABOLIC PANEL - URINALYSIS, WITH MICROSCOPIC - LIPID PANEL, NONFASTING 4. Stage 3a chronic kidney disease (HCC) - ICD9: 585.3, ICD10: N18.31 Check - COMP METABOLIC PANEL - URINALYSIS, WITH MICROSCOPIC - CBC + DIFF 5. Anxiety - ICD9: 300.00, ICD10: F41.9 Cont atarax as needed. - TSH BLD 6. Malignant neoplasm of transverse colon (HCC) - ICD9: 153.1, ICD10: C18.4 - sees general surgery for surveillance. 7. Memory impairment - ICD9: 780.93, ICD10: R41.3 - MME was ok. 8. Osteoporosis, unspecified osteoporosis type, unspecified pathological fracture presence - ICD9: 733.00, ICD10: M81.0 - Reviewed the need for Calcium and Vitamin D supplements and weight bearing exercise as tolerated 9. Advance directive discussed with patient - ICD9: V65.49, ICD10: Z71.89 - up to date. F/u 6 months routine check BMP, Lipid prior I spent a total of 40 minutes on the date of the service which included preparing to see the patient, [id number] patient care, completing clinical documentation, performing a medically appropriate examination, counseling and educating the patient/family/caregiver and ordering medications, tests, or procedures. Bassem Marques MD documented in this encounter [facility] 11-30-2022 Miscellaneous Notes Last refill 12/19/21 Qty: 90 with 3 refills FRANNIE 08/18/22 NOV 03/01/23 Soheila Plasencia LPN Patient has been identified by name and date of : Yes Last office visit in this department: Visit date not found RX INSTRUCTIONS: Patient aware RX will be sent to pharmacy. No need to notify patient. Patient phones requesting refills as follows: Requested Prescriptions Pending Prescriptions Disp Refills amLODIPine (NORVASC) 5 mg tablet 90 tablet 3 Sig: Take 1 tablet by mouth once daily. Please review and advise. Kiya Bess documented in this encounter [facility] 08-18-2022 Note HNO ID: [id number] Author: Wero Curry PA-C Service: ? Author Type: Physician Internet Security Specialist Type: Progress Notes Filed: 08/18/2022 2:16 PM Note Text: Chief Complaint Patient presents with: 6 Month Exam HPI Isatu Botello is a 87 year old female who presents here today for Chronic Medical Conditions.. Patient with hx of HTN, hyperlipidemia, CKD, osteoporosis, anxiety, and those as below. Patient overall doing well. No major concerns. Has had some neck stiffness. Comes and goes. Nothing severe or debilitating . Past medical history, appointments, medications, allergies reviewed. Previous Medical History PAST MEDICAL HISTORY Diagnosis Date Age-related osteoporosis without current pathological fracture Fosamax stopped at end of 2016 [place] (actinic keratosis) 10/06/2015 left temperal area, Left hand treated 10/09/2016 Allergic rhinitis 12/01/2011 Anxiety 11/26/2009 Benign neoplasm of colon CKD (chronic kidney disease) stage 3, GFR 30-59 ml/min ([facility]) 06/16/2014 Diverticulosis of large intestine Essential hypertension with goal blood pressure less than 140/90 10/06/2015 FHx: colon cancer 12/16/2015 Hemorrhoids History of colonic polyps 12/09/2008 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 S/p right hemicolectomy. Due for colonoscopy 2019 Memory impairment 10/12/2017 MMSE 09/2017 score 26 Mixed hyperlipidemia Osteoporosis 10/28/2012 Fosamax started 2011 Situational stress 04/11/2017 Previous Surgical History PAST SURGICAL HISTORY Procedure Laterality Date BIOPSY BREAST OPEN INCISIONAL Bx of breast, incisional CHOLECYSTECTOMY HX 01/19/2016 COLONOSCOPY 03/09/2017 Dr. Conrad, repeat 3 yrs COLONOSCOPY 04/13/2020 Dr. Conrad, repeat 3 years COLONOSCOPY FLX DX W/COLLJ SPEC WHEN PFRMD 12/04/2005 Colonoscopy COLONOSCOPY FLX DX W/COLLJ SPEC WHEN PFRMD 12/25/13 Colonoscopy, recheck 5 yrs COLONOSCOPY FLX DX W/COLLJ SPEC WHEN PFRMD 12/16/2015 Colonoscopy, repeat in a year COLSC FLX W/RMVL OF TUMOR POLYP LESION SNARE TQ 12/09/08 LAPAROSCOPY SURG CHOLECYSTECTOMY 01-19-16 LAPS COLECTOMY PRTL W/RMVL TERMINAL ILEUM 01-19-16 colon cancer LIG/TRNSXJ FLP TUBE ABDL/VAG APPR UNI/BI Tubal ligation PAST SURGICAL HISTORY OF 01/19/2016 right hemicolectomy for proximal to mid tranverse colon CA Family History FAMILY HISTORY Problem Relation Age of Onset Hypertension Mother at age 76 from [place] Coronary Artery Disease Mother Diabetes Mother None Father at age 97 Colon Cancer Sister Diabetes Sister Cancer Brother thyroid Patient Allergies ALLERGIES Allergen Reactions Sulfa (Sulfonamide * Unknown Naldecon Senior Dx * Unknown Current Medications Current Outpatient Medications on File Prior to Visit Medication Sig ASCORBATE CALCIUM, VITAMIN C, ORAL Take by mouth. cloNIDine HCl (CATAPRES) 0.1 mg tablet Take 1 tablet by mouth three times daily. hydrOXYzine HCl (ATARAX) 10 mg tablet Take 1 tablet by mouth three times daily as needed. amLODIPine (NORVASC) 5 mg tablet Take 1 tablet by mouth once daily. MULTI-VITAMIN ORAL Take by mouth. ASCORBIC ACID, VITAMIN C, ORAL Take by mouth. triamcinolone acetonide (KENALOG) 0.1 % ointment Apply to affected area twice daily. (Patient not taking: No sig reported) aspirin, enteric coated (ASPIRIN, ENTERIC COATED) 81 mg EC tablet Take 81 mg by mouth once daily. (Patient not taking: Reported on 08/18/2022) Cholecalciferol, Vitamin D3, 1,000 unit cap Take 1 capsule by mouth once daily. (Patient not taking: Reported on 08/18/2022) No current facility-administered medications on file prior to visit. Social History Social History Tobacco Use Smoking status: Never Smokeless tobacco: Never Vaping Use Vaping Use: Never used Substance Use Topics Alcohol use: No Drug use: No Review of Symptoms REVIEW OF SYSTEMS GENERAL: No weight loss, malaise or fevers NECK: Negative for lumps, goiter, pain and significant neck swelling RESPIRATORY: Negative for cough, hemoptysis, wheezing, COPD, dyspnea or shortness of breath CARDIOVASCULAR: Negative for chest pain, leg swelling, hypertension, CHF or palpitations NEURO: No history of headaches, syncope, paralysis, seizures or tremors EXAM: BP 128/72 (BP Site: Left Arm, BP Position: Sitting, BP Cuff Size: Regular Adult) Pulse 72 Temp 36.2 ?C (97.1 ?F) Resp 16 Wt 54 kg (119 lb) BMI 20.82 kg/m? General Appearance: Well appearing, alert, in no acute distress, well-hydrated, well nourished.. Neck: Supple, no adenopathy; thyroid symmetric, normal size, no bruits. Lungs: Lungs clear to auscultation. No wheezing, rhonchi, rales.. Heart: RRR without murmur, gallop, or rubs. No ectopy. Extremities: No deformities, edema, skin discoloration, clubbing or cyanosis. Good capillary refill. . Peripheral Pulses: Normal. Health Maintenance List DTAP,TDAP,TD(1 - Tdap) Never done SHINGRIX VACCINE(1 of 2) N (more content not included)... [facility] 08-18-2022 History of Presen t illness Narrative Chief Complaint Patient presents with: 6 Month Exam HPI Isatu Botello is a 87 year old female who presents here today for Chronic Medical Conditions.. Patient with hx of HTN, hyperlipidemia, CKD, osteoporosis, anxiety, and those as below. Patient overall doing well. No major concerns. Has had some neck stiffness. Comes and goes. Nothing severe or debilitating . Past medical history, appointments, medications, allergies reviewed. Previous Medical History PAST MEDICAL HISTORY Diagnosis Date Age-related osteoporosis without current pathological fracture Fosamax stopped at end of 2016 [place] (actinic keratosis) 10/06/2015 left temperal area, Left hand treated 10/09/2016 Allergic rhinitis 12/01/2011 Anxiety 11/26/2009 Benign neoplasm of colon CKD (chronic kidney disease) stage 3, GFR 30-59 ml/min (HCC) 06/16/2014 Diverticulosis of large intestine Essential hypertension with goal blood pressure less than 140/90 10/06/2015 FHx: colon cancer 12/16/2015 Hemorrhoids History of colonic polyps 12/09/2008 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 S/p right hemicolectomy. Due for colonoscopy 2019 Memory impairment 10/12/2017 MMSE 09/2017 score 26 Mixed hyperlipidemia Osteoporosis 10/28/2012 Fosamax started 2011 Situational stress 04/11/2017 Previous Surgical History PAST SURGICAL HISTORY Procedure Laterality Date BIOPSY BREAST OPEN INCISIONAL Bx of breast, incisional CHOLECYSTECTOMY HX 01/19/2016 COLONOSCOPY 03/09/2017 Dr. Conrad, repeat 3 yrs COLONOSCOPY 04/13/2020 Dr. Conrad, repeat 3 years COLONOSCOPY FLX DX W/COLLJ SPEC WHEN PFRMD 12/04/2005 Colonoscopy COLONOSCOPY FLX DX W/COLLJ SPEC WHEN PFRMD 12/25/13 Colonoscopy, recheck 5 yrs COLONOSCOPY FLX DX W/COLLJ SPEC WHEN PFRMD 12/16/2015 Colonoscopy, repeat in a year COLSC FLX W/RMVL OF TUMOR POLYP LESION SNARE TQ 12/09/08 LAPAROSCOPY SURG CHOLECYSTECTOMY 01-19-16 LAPS COLECTOMY PRTL W/RMVL TERMINAL ILEUM 01-19-16 colon cancer LIG/TRNSXJ FLP TUBE ABDL/VAG APPR UNI/BI Tubal ligation PAST SURGICAL HISTORY OF 01/19/2016 right hemicolectomy for proximal to mid tranverse colon CA Family History FAMILY HISTORY Problem Relation Age of Onset Hypertension Mother at age 76 from [place] Coronary Artery Disease Mother Diabetes Mother None Father at age 97 Colon Cancer Sister Diabetes Sister Cancer Brother thyroid Patient Allergies ALLERGIES Allergen Reactions Sulfa (Sulfonamide * Unknown Naldecon Senior Dx * Unknown Current Medications Current Outpatient Medications on File Prior to Visit Medication Sig ASCORBATE CALCIUM, VITAMIN C, ORAL Take by mouth. cloNIDine HCl (CATAPRES) 0.1 mg tablet Take 1 tablet by mouth three times daily. hydrOXYzine HCl (ATARAX) 10 mg tablet Take 1 tablet by mouth three times daily as needed. amLODIPine (NORVASC) 5 mg tablet Take 1 tablet by mouth once daily. MULTI-VITAMIN ORAL Take by mouth. ASCORBIC ACID, VITAMIN C, ORAL Take by mouth. triamcinolone acetonide (KENALOG) 0.1 % ointment Apply to affected area twice daily. (Patient not taking: No sig reported) aspirin, enteric coated (ASPIRIN, ENTERIC COATED) 81 mg EC tablet Take 81 mg by mouth once daily. (Patient not taking: Reported on 08/18/2022) Cholecalciferol, Vitamin D3, 1,000 unit cap Take 1 capsule by mouth once daily. (Patient not taking: Reported on 08/18/2022) No current facility-administered medications on file prior to visit. Social History Social History Tobacco Use Smoking status: Never Smokeless tobacco: Never Vaping Use Vaping Use: Never used Substance Use Topics Alcohol use: No Drug use: No Review of Symptoms REVIEW OF SYSTEMS GENERAL: No weight loss, malaise or fevers NECK: Negative for lumps, goiter, pain and significant neck swelling RESPIRATORY: Negative for cough, hemoptysis, wheezing, COPD, dyspnea or shortness of breath CARDIOVASCULAR: Negative for chest pain, leg swelling, hypertension, CHF or palpitations NEURO: No history of headaches, syncope, paralysis, seizures or tremors EXAM: BP 128/72 (BP Site: Left Arm, BP Position: Sitting, BP Cuff Size: Regular Adult) Pulse 72 Temp 36.2 C (97.1 F) Resp 16 Wt 54 kg (119 lb) BMI 20.82 kg/m General Appearance: Well appearing, alert, in no acute distress, well-hydrated, well nourished.. Neck: Supple, no adenopathy; thyroid symmetric, normal size, no bruits. Lungs: Lungs clear to auscultation. No wheezing, rhonchi, rales.. Heart: RRR without murmur, gallop, or rubs. No ectopy. Extremities: No deformities, edema, skin discoloration, clubbing or cyanosis. Good capillary refill. . Peripheral Pulses: Normal. Health Maintenance List DTAP,TDAP,TD(1 - Tdap) Never done SHINGRIX VACCINE(1 of 2) Never done COVID-19 VACCINE(4 - Booster for Moderna series) due on 07/07/2021 ADVANCE DIRECTIVE DISCUSSION due on 05/28/2022 DEPRESSION ASSESSMENT due on 05/28/2022 DIABETES SCREEN due on 01/26/2025 BONE DENSITY Completed PNEUMOCOCCAL: 65+ Completed INFLUENZA Discontinued Data reviewed N/a ASSESSMENT/PLAN: 1. Mixed hyperlipidemia - ICD9: 272.2, ICD10: E78.2 (primary diagnosis) - to be determined upon return of lab results - Encouraged following a low carbohydrate, healthy oil intake diet. - Continue current therapy. - LIPID PANEL, NONFASTING 2. Essential hypertension with goal blood pressure less than 140/90 - ICD9: 401.9, ICD10: I10 - good control - Continue current medication(s) - Recommended regular aerobic exercise. - Recommend home blood pressure monitoring, to bring results in on next visit - Goal of BP <130/80 - URINALYSIS, WITH MICROSCOPIC - CBC + DIFF - COMP METABOLIC PANEL 3. Stage 3a chronic kidney disease (HCC) - ICD9: 585.3, ICD10: N18.31 Await labs - CBC + DIFF - COMP METABOLIC PANEL 4. Memory impairment - ICD9: 780.93, ICD10: R41.3 stable 5. Situational stress - ICD9: V62.89, ICD10: F43.9 stable 6. Osteoporosis, unspecified osteoporosis type, unspecified pathological fracture presence - ICD9: 733.00, ICD10: M81.0 - VITAMIN D 25 HYDROXY Follow up for wellness in 6 months. Wero Curry PA-C documented in this encounter [facility] 05-23-2022 Miscellaneous Notes Addended by: WERO QUEZADA on: 05/23/2022 09:38 AM Modules accepted: Orders Addended by: ANJALI WEINER on: 05/23/2022 09:20 AM Modules accepted: Orders documented in this encounter [facility] 05-23-2022 Note HNO ID: [id number] Author: Wero Curry PA-C Service: ? Author Type: Physician Internet Security Specialist Type: Progress Notes Filed: 05/23/2022 8:35 AM Note Text: Chief Complaint Patient presents with: Anxiety HPI Isatu Botello is a 86 year old female who presents here today for Above Complaints.. Patient is here today with son and . Patient worries about her 's health. Sometimes works herself into a panic. Past medical history, appointments, medications, allergies reviewed. Previous Medical History PAST MEDICAL HISTORY Diagnosis Date Age-related osteoporosis without current pathological fracture Fosamax stopped at end of 2016 [place] (actinic keratosis) 10/06/2015 left temperal area, Left hand treated 10/09/2016 Allergic rhinitis 12/01/2011 Anxiety 11/26/2009 Benign neoplasm of colon CKD (chronic kidney disease) stage 3, GFR 30-59 ml/min (HCC) 06/16/2014 Diverticulosis of large intestine Essential hypertension with goal blood pressure less than 140/90 10/06/2015 FHx: colon cancer 12/16/2015 Hemorrhoids History of colonic polyps 12/09/2008 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 S/p right hemicolectomy. Due for colonoscopy 2019 Memory impairment 10/12/2017 MMSE 09/2017 score 26 Mixed hyperlipidemia Osteoporosis 10/28/2012 Fosamax started 2011 Situational stress 04/11/2017 Previous Surgical History PAST SURGICAL HISTORY Procedure Laterality Date BIOPSY BREAST OPEN INCISIONAL Bx of breast, incisional CHOLECYSTECTOMY HX 01/19/2016 COLONOSCOPY 03/09/2017 Dr. Conrad, repeat 3 yrs COLONOSCOPY 04/13/2020 Dr. Conrad, repeat 3 years COLONOSCOPY FLX DX W/COLLJ SPEC WHEN PFRMD 12/04/2005 Colonoscopy COLONOSCOPY FLX DX W/COLLJ SPEC WHEN PFRMD 12/25/13 Colonoscopy, recheck 5 yrs COLONOSCOPY FLX DX W/COLLJ SPEC WHEN PFRMD 12/16/2015 Colonoscopy, repeat in a year COLSC FLX W/RMVL OF TUMOR POLYP LESION SNARE TQ 12/09/08 LAPAROSCOPY SURG CHOLECYSTECTOMY 01-19-16 LAPS COLECTOMY PRTL W/RMVL TERMINAL ILEUM 01-19-16 colon cancer LIG/TRNSXJ FLP TUBE ABDL/VAG APPR UNI/BI Tubal ligation PAST SURGICAL HISTORY OF 01/19/2016 right hemicolectomy for proximal to mid tranverse colon CA Family History FAMILY HISTORY Problem Relation Age of Onset Hypertension Mother at age 76 from [place] Coronary Artery Disease Mother Diabetes Mother None Father at age 97 Colon Cancer Sister Diabetes Sister Cancer Brother thyroid Patient Allergies ALLERGIES Allergen Reactions Sulfa (Sulfonamide * Unknown Naldecon Senior Dx * Unknown Current Medications Current Outpatient Medications on File Prior to Visit Medication Sig amLODIPine (NORVASC) 5 mg tablet Take 1 tablet by mouth once daily. MULTI-VITAMIN ORAL Take by mouth. ASCORBIC ACID, VITAMIN C, ORAL Take by mouth. cloNIDine HCl (CATAPRES) 0.1 mg tablet Take 1 tablet by mouth three times daily. aspirin, enteric coated (ASPIRIN, ENTERIC COATED) 81 mg EC tablet Take 81 mg by mouth once daily. Cholecalciferol, Vitamin D3, 1,000 unit cap Take 1 capsule by mouth once daily. triamcinolone acetonide (KENALOG) 0.1 % ointment Apply to affected area twice daily. (Patient not taking: No sig reported) No current facility-administered medications on file prior to visit. Social History Social History Tobacco Use Smoking status: Never Smokeless tobacco: Never Vaping Use Vaping Use: Never used Substance Use Topics Alcohol use: No Drug use: No Review of Symptoms REVIEW OF SYSTEMS See hpi EXAM: BP 130/78 Pulse 99 Temp 36.7 ?C (98.1 ?F) (Right Tympanic) Resp 16 Wt 53.9 kg (118 lb 12.8 oz) SpO2 98% BMI 20.79 kg/m? General Appearance: Well appearing, alert, in no acute distress, well-hydrated, well nourished.. Health Maintenance List DTAP,TDAP,TD(1 - Tdap) Never done SHINGRIX VACCINE(1 of 2) Never done DEPRESSION ASSESSMENT Never done COVID-19 VACCINE(4 - Booster for Moderna series) due on 07/07/2021 DIABETES SCREEN due on 01/26/2025 BONE DENSITY Completed ADVANCE DIRECTIVE DISCUSSION Completed PNEUMOCOCCAL: 65+ Completed INFLUENZA Discontinued Data reviewed ASSESSMENT/PLAN: 1. Anxiety - ICD9: 300.00, ICD10: F41.9 Can try hydroxyzine prn. Follow up if not benefiting. Return as scheduled or sooner prn. Wero Curry PA-C [facility] 05-23-2022 History of Presen t illness Narrative Chief Complaint Patient presents with: Anxiety HPI Isatu Botello is a 86 year old female who presents here today for Above Complaints.. Patient is here today with son and . Patient worries about her 's health. Sometimes works herself into a panic. Past medical history, appointments, medications, allergies reviewed. Previous Medical History PAST MEDICAL HISTORY Diagnosis Date Age-related osteoporosis without current pathological fracture Fosamax stopped at end of 2016 [place] (actinic keratosis) 10/06/2015 left temperal area, Left hand treated 10/09/2016 Allergic rhinitis 12/01/2011 Anxiety 11/26/2009 Benign neoplasm of colon CKD (chronic kidney disease) stage 3, GFR 30-59 ml/min (HCC) 06/16/2014 Diverticulosis of large intestine Essential hypertension with goal blood pressure less than 140/90 10/06/2015 FHx: colon cancer 12/16/2015 Hemorrhoids History of colonic polyps 12/09/2008 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 S/p right hemicolectomy. Due for colonoscopy 2019 Memory impairment 10/12/2017 MMSE 09/2017 score 26 Mixed hyperlipidemia Osteoporosis 10/28/2012 Fosamax started 2011 Situational stress 04/11/2017 Previous Surgical History PAST SURGICAL HISTORY Procedure Laterality Date BIOPSY BREAST OPEN INCISIONAL Bx of breast, incisional CHOLECYSTECTOMY HX 01/19/2016 COLONOSCOPY 03/09/2017 Dr. Conrad, repeat 3 yrs COLONOSCOPY 04/13/2020 Dr. Conrad, repeat 3 years COLONOSCOPY FLX DX W/COLLJ SPEC WHEN PFRMD 12/04/2005 Colonoscopy COLONOSCOPY FLX DX W/COLLJ SPEC WHEN PFRMD 12/25/13 Colonoscopy, recheck 5 yrs COLONOSCOPY FLX DX W/COLLJ SPEC WHEN PFRMD 12/16/2015 Colonoscopy, repeat in a year COLSC FLX W/RMVL OF TUMOR POLYP LESION SNARE TQ 12/09/08 LAPAROSCOPY SURG CHOLECYSTECTOMY 01-19-16 LAPS COLECTOMY PRTL W/RMVL TERMINAL ILEUM 01-19-16 colon cancer LIG/TRNSXJ FLP TUBE ABDL/VAG APPR UNI/BI Tubal ligation PAST SURGICAL HISTORY OF 01/19/2016 right hemicolectomy for proximal to mid tranverse colon CA Family History FAMILY HISTORY Problem Relation Age of Onset Hypertension Mother at age 76 from [place] Coronary Artery Disease Mother Diabetes Mother None Father at age 97 Colon Cancer Sister Diabetes Sister Cancer Brother thyroid Patient Allergies ALLERGIES Allergen Reactions Sulfa (Sulfonamide * Unknown Naldecon Senior Dx * Unknown Current Medications Current Outpatient Medications on File Prior to Visit Medication Sig amLODIPine (NORVASC) 5 mg tablet Take 1 tablet by mouth once daily. MULTI-VITAMIN ORAL Take by mouth. ASCORBIC ACID, VITAMIN C, ORAL Take by mouth. cloNIDine HCl (CATAPRES) 0.1 mg tablet Take 1 tablet by mouth three times daily. aspirin, enteric coated (ASPIRIN, ENTERIC COATED) 81 mg EC tablet Take 81 mg by mouth once daily. Cholecalciferol, Vitamin D3, 1,000 unit cap Take 1 capsule by mouth once daily. triamcinolone acetonide (KENALOG) 0.1 % ointment Apply to affected area twice daily. (Patient not taking: No sig reported) No current facility-administered medications on file prior to visit. Social History Social History Tobacco Use Smoking status: Never Smokeless tobacco: Never Vaping Use Vaping Use: Never used Substance Use Topics Alcohol use: No Drug use: No Review of Symptoms REVIEW OF SYSTEMS See hpi EXAM: BP 130/78 Pulse 99 Temp 36.7 C (98.1 F) (Right Tympanic) Resp 16 Wt 53.9 kg (118 lb 12.8 oz) SpO2 98% BMI 20.79 kg/m General Appearance: Well appearing, alert, in no acute distress, well-hydrated, well nourished.. Health Maintenance List DTAP,TDAP,TD(1 - Tdap) Never done SHINGRIX VACCINE(1 of 2) Never done DEPRESSION ASSESSMENT Never done COVID-19 VACCINE(4 - Booster for Moderna series) due on 07/07/2021 DIABETES SCREEN due on 01/26/2025 BONE DENSITY Completed ADVANCE DIRECTIVE DISCUSSION Completed PNEUMOCOCCAL: 65+ Completed INFLUENZA Discontinued Data reviewed ASSESSMENT/PLAN: 1. Anxiety - ICD9: 300.00, ICD10: F41.9 Can try hydroxyzine prn. Follow up if not benefiting. Return as scheduled or sooner prn. Wero Curry PA-C documented in this encounter [facility] 01-27-2022 Miscellaneous Notes Patient returned call and given provider's message below with verbalized understanding. TC to pt, left message to return call to office. Nikunj Rm LPN Let patient know that labs are all stable/wnl. Cholesterol has improved. LDL down to 75. Thanks. Wero Curry PA-C documented in this encounter [facility] 01-26-2022 History of Presen t illness Narrative Medicare Yearly Visit Medical B eligibilty date not able to find Date of last exam 04/29/2020 PAST MEDICAL HISTORY Diagnosis Date Age-related osteoporosis without current pathological fracture Fosamax stopped at end of 2016 AK (actinic keratosis) 10/06/2015 left temperal area, Left hand treated 10/09/2016 Allergic rhinitis 12/01/2011 Anxiety 11/26/2009 Benign neoplasm of colon CKD (chronic kidney disease) stage 3, GFR 30-59 ml/min ([facility]) 06/16/2014 Diverticulosis of large intestine Essential hypertension with goal blood pressure less than 140/90 10/06/2015 FHx: colon cancer 12/16/2015 Hemorrhoids History of colonic polyps 12/09/2008 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 S/p right hemicolectomy. Due for colonoscopy 2019 Memory impairment 10/12/2017 MMSE 09/2017 score 26 Mixed hyperlipidemia Osteoporosis 10/28/2012 Fosamax started 2011 Situational stress 04/11/2017 PAST SURGICAL HISTORY Procedure Laterality Date BIOPSY BREAST OPEN INCISIONAL Bx of breast, incisional CHOLECYSTECTOMY HX 01/19/2016 COLONOSCOPY 03/09/2017 Dr. Conrad, repeat 3 yrs COLONOSCOPY 04/13/2020 Dr. Conrad, repeat 3 years COLONOSCOPY FLX DX W/COLLJ SPEC WHEN PFRMD 12/04/2005 Colonoscopy COLONOSCOPY FLX DX W/COLLJ SPEC WHEN PFRMD 12/25/13 Colonoscopy, recheck 5 yrs COLONOSCOPY FLX DX W/COLLJ SPEC WHEN PFRMD 12/16/2015 Colonoscopy, repeat in a year COLSC FLX W/RMVL OF TUMOR POLYP LESION SNARE TQ 12/09/08 LAPAROSCOPY SURG CHOLECYSTECTOMY 01-19-16 LAPS COLECTOMY PRTL W/RMVL TERMINAL ILEUM 01-19-16 colon cancer LIG/TRNSXJ FLP TUBE ABDL/VAG APPR UNI/BI Tubal ligation PAST SURGICAL HISTORY OF 01/19/2016 right hemicolectomy for proximal to mid tranverse colon CA ALLERGIES: Sulfa (Sulfonamide Antibiotics) and Naldecon Senior Dx [Dextromethorphan-Guaifenesin] Medications reviewed: Yes FAMILY HISTORY Problem Relation Age of Onset Hypertension Mother at age 76 from [place] Coronary Artery Disease Mother Diabetes Mother None Father at age 97 Colon Cancer Sister Diabetes Sister Cancer Brother thyroid SOCIAL HISTORY: Social History Tobacco Use Smoking status: Never Smokeless tobacco: Never Vaping Use Vaping Use: Never used Substance Use Topics Alcohol use: No Drug use: No Isatu likes to exercise by bowling, staying active in her yard. She watches her diet for sodium, low fat and low cholesterol some of the time. List of current specialists seen: none End of Live Planning discussed including patients advanced directive wishes: Yes I am willing to follow Isatu's advanced directives. Depression Screening 04/11/2016 04/11/2017 04/23/2018 01/26/2022 PHQ-2 Score 0 0 0 0 Depression screening tool completed and reviewed. Based on score and interview, patient is not at risk for depression. Screening tool discussed with patient, and I recommended no further intervention at this time. PHQ-2 Score: 0 Functional Ability/Safety Screen 1. Was the patient's timed Up and Go test unsteady or longer than 30 seconds? No 2. Does the patient need help with the phone, transportation, shopping,preparing meals, housework, laundry, medications or managing money? No 3. Does your home have rugs in the hallway, lack of grab bars in the bathroom, lack of handrails on the stairs or have poor lighting? No Hearing Evaluation: hard of hearing PHYSICAL EXAM BP 110/70 (BP Site: Right Arm, BP Position: Sitting, BP Cuff Size: Regular Adult) Pulse 76 Temp 37.3 C (99.1 F) Resp 16 Wt 53.1 kg (117 lb) BMI 20.47 kg/m Alert and oriented X 3: YES Body mass index is 20.47 kg/m . Visual acuity: see opto ASSESSMENT/PLAN: 86 year old female The following prevention plan was discussed during the office visit and provided to the patient: See below Wero Curry PA-C Chief Complaint Patient presents with: Medicare Wellness Exam HPI Isatu Botello is a 86 year old female who presents here today for extensive exam Patient with hx of hyperlipidemia, HTN, CKD, Colonoscopy, osteoporosis, mild memory deficit, and those as below. She denies specific concerns today. Has noted some increased nervousness. Feet feel a little tight on the bottom of her feet. Past medical history, appointments, medications, allergies reviewed. Previous Medical History PAST MEDICAL HISTORY Diagnosis Date Age-related osteoporosis without current pathological fracture Fosamax stopped at end of 2016 AK (actinic keratosis) 10/06/2015 left temperal area, Left hand treated 10/09/2016 Allergic rhinitis 12/01/2011 Anxiety 11/26/2009 Benign neoplasm of colon CKD (chronic kidney disease) stage 3, GFR 30-59 ml/min ([facility]) 06/16/2014 Diverticulosis of large intestine Essential hypertension with goal blood pressure less than 140/90 10/06/2015 FHx: colon cancer 12/16/2015 Hemorrhoids History of colonic polyps 12/09/2008 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 S/p right hemicolectomy. Due for colonoscopy 2019 Memory impairment 10/12/2017 MMSE 09/2017 score 26 Mixed hyperlipidemia Osteoporosis 10/28/2012 Fosamax started 2011 Situational stress 04/11/2017 Previous Surgical History PAST SURGICAL HISTORY Procedure Laterality Date BIOPSY BREAST OPEN INCISIONAL Bx of breast, incisional CHOLECYSTECTOMY HX 01/19/2016 COLONOSCOPY 03/09/2017 Dr. Conrad, repeat 3 yrs COLONOSCOPY 04/13/2020 Dr. Conrad, repeat 3 years COLONOSCOPY FLX DX W/COLLJ SPEC WHEN PFRMD 12/04/2005 Colonoscopy COLONOSCOPY FLX DX W/COLLJ SPEC WHEN PFRMD 12/25/13 Colonoscopy, recheck 5 yrs COLONOSCOPY FLX DX W/COLLJ SPEC WHEN PFRMD 12/16/2015 Colonoscopy, repeat in a year COLSC FLX W/RMVL OF TUMOR POLYP LESION SNARE TQ 12/09/08 LAPAROSCOPY SURG CHOLECYSTECTOMY 01-19-16 LAPS COLECTOMY PRTL W/RMVL TERMINAL ILEUM 01-19-16 colon cancer LIG/TRNSXJ FLP TUBE ABDL/VAG APPR UNI/BI Tubal ligation PAST SURGICAL HISTORY OF 01/19/2016 right hemicolectomy for proximal to mid tranverse colon CA Family History FAMILY HISTORY Problem Relation Age of Onset Hypertension Mother at age 76 from [place] Coronary Artery Disease Mother Diabetes Mother None Father at age 97 Colon Cancer Sister Diabetes Sister Cancer Brother thyroid Patient Allergies ALLERGIES Allergen Reactions Sulfa (Sulfonamide * Unknown Naldecon Senior Dx * Unknown Current Medications Current Outpatient Medications on File Prior to Visit Medication Sig amLODIPine (NORVASC) 5 mg tablet Take 1 tablet by mouth once daily. MULTI-VITAMIN ORAL Take by mouth. ASCORBIC ACID, VITAMIN C, ORAL Take by mouth. cloNIDine HCl (CATAPRES) 0.1 mg tablet Take 1 tablet by mouth three times daily. aspirin, enteric coated (ASPIRIN, ENTERIC COATED) 81 mg EC tablet Take 81 mg by mouth once daily. Cholecalciferol, Vitamin D3, 1,000 unit cap Take 1 capsule by mouth once daily. triamcinolone acetonide (KENALOG) 0.1 % ointment Apply to affected area twice daily. (Patient not taking: Reported on 01/26/2022) No current facility-administered medications on file prior to visit. Social History Social History Tobacco Use Smoking status: Never Smokeless tobacco: Never Vaping Use Vaping Use: Never used Substance Use Topics Alcohol use: No Drug use: No Review of Symptoms REVIEW OF SYSTEMS GENERAL: No weight loss, malaise or fevers HEENT: No changes in hearing or vision, no nose bleeds or other nasal problems NECK: Negative for lumps, goiter, pain and significant neck swelling RESPIRATORY: Negative for cough, hemoptysis, wheezing, COPD, dyspnea or shortness of breath CARDIOVASCULAR: Negative for chest pain, leg swelling, hypertension, CHF or palpitations GI: Negative for abdominal discomfort, blood in stools or black stools, change in bowel habit, heart burn, nausea, vomiting : No history of dysuria, frequency or incontinence MUSCULOSKELETAL: Negative for joint pain or swelling, back pain or muscle pain SKIN: See HPI PSYCH: Negative for sleep disturbance, mood disorder and recent psychosocial stressors, See HPI HEMATOLOGY/LYMPHOLOGY: Negative for prolonged bleeding, bruising easily or swollen nodes ENDOCRINE: Negative for cold or heat intolerance, polyuria, polydipsia and goiter NEURO: No history of headaches, syncope, paralysis, seizures or tremors EXAM: BP 110/70 (BP Site: Right Arm, BP Position: Sitting, BP Cuff Size: Regular Adult) Pulse 76 Temp 37.3 C (99.1 F) Resp 16 Wt 53.1 kg (117 lb) BMI 20.47 kg/m General Appearance: Well appearing, alert, in no acute distress, well-hydrated, well nourished.. Skin: Skin color, texture, turgor normal, no suspicious rashes or lesions. Head: Normocephalic, no masses, lesions, tenderness or abnormalities. Eyes: Anicteric sclera. Pupils are equally round and reactive to light. Extraocular movements are intact. . Ears: External ears normal, canals clear. Neck: Supple, no adenopathy; thyroid symmetric, normal size, no bruits. Lungs: Lungs clear to auscultation. No wheezing, rhonchi, rales.. Heart: RRR without murmur, gallop, or rubs. No ectopy. Abdomen: Normal abdominal exam, Abdomen soft, non-tender. Bowel sounds normal. No masses, organomegaly. Extremities: No deformities, edema, skin discoloration, clubbing or cyanosis. Good capillary refill. . Peripheral Pulses: Normal. Neurologic: Gait normal. Reflexes normal and symmetric. Sensation grossly intact.. Health Maintenance List DTAP,TDAP,TD(1 - Tdap) Never done SHINGRIX VACCINE(1 of 2) Never done ADVANCE DIRECTIVE DISCUSSION Never done COVID-19 VACCINE(4 - Booster for Moderna series) due on 09/10/2021 DIABETES SCREEN due on 06/02/2024 BONE DENSITY Completed PNEUMOCOCCAL: 65+ Completed INFLUENZA Discontinued Data reviewed N/a ASSESSMENT/PLAN: 1. Medicare annual wellness visit, subsequent - ICD9: V70.0, ICD10: Z00.00 (primary diagnosis) - Counseled on healthy diet and regular exercise - Calcium intake with supplements or by diet of 1000 mg/day for under 50, 1716-0978 mg/day for 50+ 2. Advance directive discussed with patient - ICD9: V65.49, ICD10: Z71.89 In chart 3. Osteoporosis, unspecified osteoporosis type, unspecified pathological fracture presence - ICD9: 733.00, ICD10: M81.0 - Reviewed the need for Calcium and Vitamin D supplements and weight bearing exercise as tolerated - patient declines restart fosamax 4. Age-related osteoporosis without current pathological fracture - ICD9: 733.01, ICD10: M81.0 - Reviewed the need for Calcium and Vitamin D supplements and weight bearing exercise as tolerated 5. Anxiety - ICD9: 300.00, ICD10: F41.9 Stable. Could consider tx if worsening 6. Memory impairment - ICD9: 780.93, ICD10: R41.3 stable 7. Essential hypertension with goal blood pressure less than 140/90 - ICD9: 401.9, ICD10: I10 - good control - Recommended regular aerobic exercise. - Recommend home blood pressure monitoring, to bring results in on next visit - Goal of BP <130/80 - BASIC METABOLIC PNL 8. Mixed hyperlipidemia - ICD9: 272.2, ICD10: E78.2 - to be determined upon return of lab results - Continue current therapy. - LIPID PANEL, NONFASTING 9. Stage 3a chronic kidney disease (HCC) - ICD9: 585.3, ICD10: N18.31 stable 10. Malignant neoplasm of transverse colon (HCC) - ICD9: 153.1, ICD10: C18.4 Continue with colonoscopy with dr. Conrad in 2022 Follow up 6 months. Wero Curry PA-C documented in this encounter [facility] 12-19-2021 Miscellaneous Notes Pt reports she does not have many left. Patient has been identified by name and date of : Yes Patient phones for refill(s): Pending Prescriptions Disp Refills AMLODIPINE 5 MG TABLET 90 tablet 3 Sig: Take 1 tablet by mouth once daily. FRANK: No Date of last office visit in primary care: 07/08/21 Future visit: 01/18/22 Last 2 Encounter Wt Readings: Date: Wt: 07/08/2021 53.1 kg (117 lb) 12/03/2020 54 kg (119 lb) Previous labs/tests for medication: Blood Pressure: BUN (mg/dL) Date Value 06/02/2021 15 Sodium (mmol/L) Date Value 06/02/2021 142 Last 1 Encounter BP Readings: Date: BP: 07/08/2021 120/76 Please advise. Thank you. Lyly Curry RN documented in this encounter [facility] documented as of this encounter (statuses as of 12/19/2021) [facility] History of Past illness Narrative* Problem Noted Date Resolved Date Well adult exam 09/30/2014 04/29/2020 Overview: Last done: 10/17/2018 documented as of this encounter (statuses as of 01/26/2022) [facility] History of Past illness Narrative* Problem Noted Date Resolved Date Well adult exam 09/30/2014 04/29/2020 Overview: Last done: 10/17/2018 documented as of this encounter (statuses as of 01/27/2022) [facility] History of Past illness Narrative* Problem Noted Date Resolved Date Well adult exam 09/30/2014 04/29/2020 Overview: Last done: 10/17/2018 documented as of this encounter (statuses as of 05/28/2022) [address] History of Past illness Narrative* Problem Noted Date Resolved Date Well adult exam 09/30/2014 04/29/2020 Overview: Last done: 10/17/2018 documented as of this encounter (statuses as of 08/18/2022) [facility] History of Past illness Narrative* Problem Noted Date Resolved Date Well adult exam 09/30/2014 04/29/2020 Overview: Last done: 10/17/2018 documented as of this encounter (statuses as of 11/30/2022) [facility] History of Past illness Narrative* Problem Noted Date Diagnosed Date Resolved Date Well adult exam 09/30/2014 04/29/2020 Overview: Last done: 10/17/2018 documented as of this encounter (statuses as of 03/03/2023) [facility] History of Past illness Narrative* Problem Noted Date Diagnosed Date Resolved Date Well adult exam 09/30/2014 04/29/2020 Overview: Last done: 10/17/2018 documented as of this encounter (statuses as of 04/05/2023) [facility] Medicare annual wellness visit, subsequent- Primary Routine general medical examination at a [facility] Advance directive discussed with patient Other specified counseling Osteoporosis, unspecified osteoporosis type, unspecified pathological fracture presence Age-related osteoporosis without current pathological fracture Senile osteoporosis Anxiety Anxiety state, unspecified Memory impairment Memory loss Essential hypertension with goal blood pressure less than 140/90 Mixed hyperlipidemia Stage 3a chronic kidney disease (HCC) Malignant neoplasm of transverse colon (HCC) Malignant neoplasm of transverse colon [facility] Diagnosis Anxiety- Primary Anxiety state, unspecified documented in this encounter [facility] note* Diagnosis Mixed hyperlipidemia- Primary Essential hypertension with goal blood pressure less than 140/90 Stage 3a chronic kidney disease (HCC) Memory impairment Memory loss Situational stress Other psychological or physical stress, not elsewhere classified Osteoporosis, unspecified osteoporosis type, unspecified pathological fracture presence documented in this encounter [facility] note* Diagnosis Medicare annual wellness visit, subsequent- Primary Routine general medical examination at a health care facility Essential hypertension with goal blood pressure less than 140/90 Mixed hyperlipidemia Stage 3a chronic kidney disease (HCC) Anxiety Anxiety state, unspecified Malignant neoplasm of transverse colon (HCC) Malignant neoplasm of transverse colon Memory impairment Memory loss Osteoporosis, unspecified osteoporosis type, unspecified pathological fracture presence Advance directive discussed with patient Other specified counseling documented in this encounter [facility] Advance Directives No Advanced Directives Records FoundDocuments on File Type Date Recorded 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 Military History Expl anation Advance Directive(s) Advance Directive(s) 12/16/2015 7:41 AM Advance Directive(s) 12/18/2011 9:05 AM Documents on File Type Date Recorded 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 Military History Expl anation Advance Directive(s) 12/18/2011 9:05 AM Summary Purpose Family History No Family History Records Found Additional Source Comments Source Comments (unrecognize d section and content) In the event this informatio n is protected by the Federal Confidentiality of Alcohol and Drug Abuse Patient Records regulations: The Federal rules restrict any use of the information to criminally investigate or prosecute any alcohol or drug abuse patient.[facility] the event this information is protected by the Federal Confidentiality of Alcohol and Drug Abuse Patient Records regulations: The Federal rules restrict any use of the information to criminally investigate or prosecute any alcohol or drug abuse patient.[facility] the event this information is protected by the Federal Confidentiality of Alcohol and Drug Abuse Patient Records regulations: The Federal rules restrict any use of the information to criminally investigate or prosecute any alcohol or drug abuse patient.[facility] the event this information is protected by the Federal Confidentiality of Alcohol and Drug Abuse Patient Records regulations: The Federal rules restrict any use of the information to criminally investigate or prosecute any alcohol or drug abuse patient.[facility] the event this information is protected by the Federal Confidentiality of Alcohol and Drug Abuse Patient Records regulations: The Federal rules restrict any use of the information to criminally investigate or prosecute any alcohol or drug abuse patient.[facility] the event this information is protected by the Federal Confidentiality of Alcohol and Drug Abuse Patient Records regulations: The Federal rules restrict any use of the information to criminally investigate or prosecute any alcohol or drug abuse patient.[facility] the event this information is protected by the Federal Confidentiality of Alcohol and Drug Abuse Patient Records regulations: The Federal rules restrict any use of the information to criminally investigate or prosecute any alcohol or drug abuse patient.[facility] the event this information is protected by the Federal Confidentiality of Alcohol and Drug Abuse Patient Records regulations: The Federal rules restrict any use of the information to criminally investigate or prosecute any alcohol or drug abuse patient.[facility] Reason for Visit (unrecogniz ed section and content) Reason Comments Medicare Wellness Exam Reason Comments Results Reason Comments Anxiety Reason Comments 6 Month Exam Reason Onset Date Comments Refill Request 11/30/2022 Care Teams (unrecognized sec tion and content) Child'S Nurse Relationship Specialty Start Date End Date Bassem Marques MD [address], [place] [id number] PCP - General Family Practice 09/30/14 Child'S Nurse Relationship Specialty Start Date End Date Bassem Marques MD [address] [facility] [address] PCP - General Family Practice 09/30/14 Child'S Nurse Relationship Specialty Start Date End Date Bassem Marques MD [address] [facility] [address] PCP - General Family Medicine 09/30/14 Child'S Nurse Relationship Specialty Start Date End Date Bassem Marques MD [address] [facility] [address] PCP - General Family Medicine 09/30/14 Child'S Nurse Relationship Specialty Start Date End Date Bassem Marques MD [address] [facility] [address] PCP - General Family Medicine 09/30/14 Child'S Nurse Relationship Specialty Start Date End Date Bassem Marques MD [address] [facility] [address] PCP - General Family Medicine 09/30/14 Child'S Nurse Relationship Specialty Start Date End Date Bassem Marques MD [address] [facility] [address] PCP - General Family Medicine 09/30/14 INFORMATION SOURCE (unrecogn ized section and content) FOR RECORDS PERTAINING TO PATIENTS WHO ARE OR HAVE BEEN ENROLLED IN A CHEMICAL DEPENDENCY/SUBSTANCEABUSE PROGRAM, SOME INFORMATION MAY BE OMITTED. This clinical summary was aggregated from multiple sources. Caution should be exercised in using it in the provision of clinical care. This summary normalizes information from multiple sources, and as a consequence, information in this document may materially change the coding, format and clinical context of patient data. In addition, data may be omitted in some cases. CLINICAL DECISIONS SHOULD BE BASED ON THE PRIMARY CLINICAL RECORDS. [employer] [facility]. provides no warranty or guarantee of the accuracy or completeness of information in this document.
[2023-05-24] MEDS: Lactated Ringers 1,000 ML 15 ML IV (07:07)
[2023-05-24] MEDS: Midazolam 5 MG/ML Syringe (07:52)
--- NOTE | 2023-05-24 08:08 | OP.CCLET_ITS ---
05/24/2023 Vahe Plunkett MD Re : Colonoscopy procedure for Isatu Botello Dear Dr. Plunkett This procedure was performed on April. My impressions and recommendations are as follows: Impressions : - Non-thrombosed external hemorrhoids, non-thrombosed internal hemorrhoids and internal hemorrhoids that prolapse with straining, but spontaneously regress to the resting position (Grade II) found on digital rectal exam. - Patent functional end-to-end ileo-colonic anastomosis, characterized by healthy appearing mucosa. - Diverticulosis in the sigmoid colon. - The examination was otherwise normal. - No specimens collected. Recommendations : - Discharge patient to home. - Resume previous diet. - Continue present medications. - Repeat colonoscopy in 5 years for surveillance. My findings are described in the full procedure note, which is enclosed. If I can be of further assistance, please feel free to contact me at Doctor phone number(s): Work: . Sincerely, Fermin Conrad MD 05/24/2023 8:08:09 AM This report has been signed electronically.
--- NOTE | 2023-05-24 08:08 | OP.COLON_ITS ---
Patient Name: Isatu Botello Procedure Date: 05/24/2023 7:39 AM Date of : 1935 Age: 87 Procedure: Colonoscopy Indications: High risk colon cancer surveillance: Personal history of colon cancer Providers: Fermin Conrad MD Referring MD: Fermin Conrad MD Medicines: Midazolam 2.5 mg IV, Meperidine 75 mg IV Patient Profile: Last Colonoscopy: March 2020. Complications: No immediate complications. Procedure: Pre-Anesthesia Assessment: - Prior to the procedure, a History and Physical was performed, and patient medications and allergies were reviewed. The patient's tolerance of previous anesthesia was also reviewed. The risks and benefits of the procedure and the sedation options and risks were discussed with the patient. All questions were answered, and informed consent was obtained. Prior Anticoagulants: The patient has taken no anticoagulant or antiplatelet agents. ASA Grade Assessment: II - A patient with mild systemic disease. After reviewing the risks and benefits, the patient was deemed in satisfactory condition to undergo the procedure. After I obtained informed consent, the scope was passed under direct vision. Throughout the procedure, the patient's blood pressure, pulse, and oxygen saturations were monitored continuously. The Colonoscope was introduced through the anus and advanced to the ileocolonic anastomosis. The colonoscopy was performed without difficulty. The patient tolerated the procedure well. The quality of the bowel preparation was good. Ileocolonic anastomosis were photographed. Moderate Sedation: Moderate (conscious) sedation was personally administered by the endoscopist. The following parameters were monitored: oxygen saturation, heart rate, blood pressure, and response to care. Total physician intraservice time was 15 minutes. Scope In: 7:52:43 AM Scope Withdrawal Time 0 hours 6 minutes 42 seconds Scope Out: 8:01:18 AM Total Procedure Duration Time 0 hours 8 minutes 35 seconds Findings: The digital rectal exam findings include non-thrombosed external hemorrhoids, non-thrombosed internal hemorrhoids and internal hemorrhoids that prolapse with straining, but spontaneously regress to the resting position (Grade II). There was evidence of a prior functional end-to-end ileo-colonic anastomosis in the proximal transverse colon. This was patent and was characterized by healthy appearing mucosa. Multiple diverticula were found in the sigmoid colon. The exam was otherwise without abnormality. Impression: - Non-thrombosed external hemorrhoids, non-thrombosed internal hemorrhoids and internal hemorrhoids that prolapse with straining, but spontaneously regress to the resting position (Grade II) found on digital rectal exam. - Patent functional end-to-end ileo-colonic anastomosis, characterized by healthy appearing mucosa. - Diverticulosis in the sigmoid colon. - The examination was otherwise normal. - No specimens collected. Recommendation: - Discharge patient to home. - Resume previous diet. - Continue present medications. - Repeat colonoscopy in 5 years for surveillance. Procedure Code(s): --- Professional --- 65336, Colonoscopy, flexible; diagnostic, including collection of specimen(s) by brushing or washing, when performed (separate procedure) 87340, 59, Moderate sedation services provided by the same physician or other qualified health cardiac care nurse performing the diagnostic or therapeutic service that the sedation supports, requiring the presence of an independent trained observer to assist in the monitoring of the patient's level of consciousness and physiological status; initial 15 minutes of intraservice time, patient age 5 years or older Diagnosis Code(s): --- Professional --- Z85.038, Personal history of other malignant neoplasm of large intestine K64.1, Second degree hemorrhoids K64.4, Residual hemorrhoidal skin tags Z98.0, Intestinal bypass and anastomosis status K57.30, Diverticulosis of large intestine without perforation or abscess without bleeding CPT copyright 2021 [employer]. All rights reserved. The codes documented in this report are preliminary and upon winter sports manager review may be revised to meet current compliance requirements. Fermin Conrad MD 05/24/2023 8:08:09 AM This report has been signed electronically. Number of Addenda: 0 Note Initiated On: 05/24/2023 7:39 AM
== END 2023-05-24 09:20 | disposition home or self-care (01) ==
LOC: EN 06:44 → AC 06:45
PROVIDERS: PCP Family Medicine; Referring Provider Family Medicine; Visit Provider Surgery
PROC: 0DJD8ZZ Inspection of Lower Intestinal Tract, Via Natural or Artificial Opening Endoscopic (ICD-10-PCS; CPT 45378; principal; 2023-05-24 07:55)
DX: Z12.11 Encounter for screening for malignant neoplasm of colon (principal); K64.1 Second degree hemorrhoids; K64.4 Residual hemorrhoidal skin tags; K57.30 Diverticulosis of large intestine without perforation or abscess without bleeding; I10 Essential (primary) hypertension; Z79.899 Other long term (current) drug therapy; Z80.0 Family history of malignant neoplasm of digestive organs; Z85.038 Personal history of other malignant neoplasm of large intestine
CPT/HCPCS: 45378; 99152; 99153; J7120

== ENCOUNTER → 2023-07-27 | Outpatient (CLI) | payer MEDICARE, SELFPAY ==
--- NOTE | 2023-07-27 13:44 | ECHOD_ITS ---
Reason For Study: HYPERTENSION Procedure This was a 2D Doppler, Color Flow transthoracic echocardiogram. Exam performed in department. Left Ventricle Normal LV size. Left ventricular systolic function is normal. The estimated ejection fraction is 65 %. Stage 1 diastolic dysfunction. No regional wall motion abnormalities noted. Right Ventricle Normal RV size. Normal systolic function. Atria Normal left atrium. Normal right atrium. Mitral Valve Normal mitral valve. Tricuspid Valve Normal tricuspid valve. Mild tricuspid valve insufficiency. Pulmonary artery systolic pressure is 30 mmHg. Aortic Valve Normal aortic valve. Trisinus/trileaflet aortic valve. Pulmonic Valve Normal pulmonic valve. Great Vessels Normal aortic root. The pulmonary artery is normal size. Normal inferior vena cava. Pericardium/Pleural No pericardial effusion. MMode/2D Measurements & Calculations LVIDd: 3.9 cm IVSd: 0.70 cm Ao root diam: 2.9 cm LVIDs: 2.5 cm LVPWd: 0.81 cm RVDd: 3.0 cm FS: 35.9 % LAV(MOD-bp): 23.9 ml LVAd ap4: 18.2 cm2 SV(MOD-sp4): 27.3 ml LAV(MOD-bp) Indexed: 15.5 ml/m2 LVLd ap4: 6.4 cm LAV(MOD-sp2): 22.8 ml EDV(MOD-sp4): 43.6 ml LAV(MOD-sp4): 23.2 ml EDV(sp4-el): 43.8 ml LVAs ap4: 10.0 cm2 LVLs ap4: 5.3 cm ESV(MOD-sp4): 16.3 ml ESV(sp4-el): 16.0 ml EF(MOD-sp4): 62.6 % EF(sp4-el): 63.6 % SV(sp4-el): 27.8 ml LA A4 area: 11.4 cm2 LA dimension(2D): 2.8 cm RA A4 area: 11.1 cm2 TAPSE: 1.8 cm Time Measurements MV dec time: 0.20 sec Doppler Measurements & Calculations MV E max rohan: 86.5 cm/sec Lat Peak E' Rohan: 7.3 cm/sec Med Peak E' Rohan: 9.3 cm/sec MV A max rohan: 99.2 cm/sec E/E' lat: 11.8 E/E' med: 9.2 MV E/A: 0.87 Ao V2 max: 99.8 cm/sec LV V1 max: 89.3 cm/sec PA V2 max: 66.9 cm/sec Ao max P.0 mmHg LV V1 max P.2 mmHg TR max rohan: 251.2 cm/sec TR max P.2 mmHg ECHO/Echo Complete Interpretation Summary Normal LV size. Left ventricular systolic function is normal. Stage 1 diastolic dysfunction. The estimated ejection fraction is 65 %. Ordering Physician: Lázaro Alicea Referring Physician: BASSEM MARQUES Performed By: Ching Maravilla RDCS
== END | disposition home or self-care (01) ==
PROVIDERS: PCP Family Medicine; Referring Provider Internal Medicine Cardiovascular Disease; Visit Provider Internal Medicine Cardiovascular Disease
DX: I51.89 Other ill-defined heart diseases (principal)
CPT/HCPCS: 93306